=== PATIENT | male | born 1960 | race African-American/Black ===

== ENCOUNTER 2017-02-11 09:00 | Inpatient (IN) | payer OTHER ==
[2017-02-11 10:21] VITALS: BMI 35.9
--- NOTE | 2017-02-11 12:16 | HP ---
CIWA Score - CIWA Score Nausea/Vomitin-No Nausea/No Vomiting Muscle Tremors: 4-Moderate,w/Arms Extend Anxiety: 4-Mod. Anxious/Guarded Agitation: 4-Moderately Restless Paroxysmal Sweats: 3 Orientation: 0-Oriented Tacttile Disturbances: 0-None Auditory Disturbances: 0-None Visual Disturbances: 0-None Headache: 1-Very Mild CIWA-Ar Total Score: 16 Admission ROS S - HPI Chief Complaint: I am here to detox and try to stay sober. Allergies/Adverse Reactions: Allergies Allergy/AdvReac Type Severity Reaction Status Date / Time No Known Allergies Allergy Verified 02/11/17 11:01 History of Present Illness: pt is a 56yr old male with a history of alcohol dependence seeking detox for treatment. pt is also on a mmtp program last dose received today with a 110mg, pending verification. pt also has a left foot chronic diabetic ulcer denuted around the edges and inner area is beefy red minimal drainage noted on gauze. pt states he has been receiving wound care weekly and last time he went was two weeks ago. He has been dressing it himself as home. Exam Limitations: Physical Impairment (diabetes ulcer bottom of left foot. walks with a cane) - Ebola screening Have you traveled outside of the country in the last 21 days: No Have you had contact with anyone from an Ebola affected area: No Have you been sick,other than usual withdrawal symptoms: No Do you have a fever: No - Review of Systems Constitutional: Chills, Diaphoresis, Changes in sleep EENT: reports: No Symptoms Reported, Dental Problems (missing teeth) Respiratory: reports: No Symptoms reported Cardiac: reports: No Symptoms Reported GI: reports: Constipated, Poor Fluid Intake : reports: No Symptoms Reported Musculoskeletal: reports: Back Pain, Muscle Pain Integumentary: reports: Flushing, Sweating, Other (ulcer to bottom of left foot) Endocrine: reports: Excessive Sweating, Flushing, Intolerance to Cold, Intolerance to Heat Hematology: reports: No Symptoms Reported Psychiatric: reports: Judgement Intact, Mood/Affect Appropiate, Orientated x3, Agitated, Anxious Other Systems: Reviewed and Negative Patient History - Patient Medical History Hx Anemia: No Hx Asthma: No Hx Chronic Obstructive Pulmonary Disease (COPD): No Hx Cancer: No Hx Cardiac Disorders: No Hx Congestive Heart Failure: No Hx Hypertension: Yes Hx Hypercholesterolemia: No Hx Pacemaker: No HX Cerebrovascular Accident: No Hx Seizures: No Hx Dementia: No Hx Diabetes: Yes Hx Gastrointestinal Disorders: No Hx Liver Disease: No Hx Genitourinary Disorders: No Hx Sexually Transmitted Disorders: No Hx Renal Disease (ESRD): No Hx Thyroid Disease: No Hx Human Immunodeficiency Virus (HIV): No (negative) Hx Hepatitis C: Yes (diagnosed >10yrs) Hx Depression: No Hx Suicide Attempt: No (denies) Hx Bipolar Disorder: No Hx Schizophrenia: No Other Medical History: chronic diabetic ulcer left foot - Patient Surgical History Past Surgical History: No - PPD History Previous Implant?: Yes Documented Results: Negative w/o proof Implanted On Prior [facility] Admission?: No PPD to be Administered?: Yes - Reproductive History Patient is a Female of Child Bearing Age (11 -55 yrs old): No - Smoking Cessation Smoking history: Former smoker Have you smoked in the past 12 months: No If you are a former smoker, when did you quit?: 20 years ago Hx Chewing Tobacco Use: No Initiated information on smoking cessation: No - Substance & Tx. History Hx Alcohol Use: Yes Hx Substance Use: Yes Substance Use Type: Alcohol, Heroin, Opiates Hx Substance Use Treatment: Yes ([facility] last detox a year ago. first time with R) - Substances Abused Alcohol Route: Oral Frequency: Daily Amount used: 1 pint vodka and up Age of first use: 15 Date of Last Use: 02/10/17 Heroin Route: Inhalation Frequency: Daily Amount used: 5-10 bags Age of first use: 35 Date of Last Use: 02/10/17 Family Disease History - Family Disease History Family Disease History: Diabetes: Mother, Brother Admission Physical Exam S - Vital Signs Vital Signs: Vital Signs - 24 hr 02/11/17 10:18 Temperature 98.4 F Pulse Rate 69 Respiratory 20 Rate Blood Pressure 115/74 - Physical General Appearance: Yes: Moderate Distress, Obese, Irritable, Sweating, Anxious HEENTM: Yes: Normal Voice Respiratory: Yes: Lungs Clear, Normal Breath Sounds, No Respiratory Distress Neck: Yes: No masses,lesions,Nodules Breast: Yes: Within Normal Limits Cardiology: Yes: Regular Rhythm, Regular Rate, S1, S2 Abdominal: Yes: Normal Bowel Sounds, Non Tender, Soft Genitourinary: Yes: Within Normal Limits Back: Yes: Normal Inspection Musculoskeletal: Yes: Back pain Extremities: Yes: Normal Inspection, Non-Tender, Tremors Neurological: Yes: Fully Oriented, Alert, Normal Response Integumentary: Yes: Diaphoresis Lymphatic: Yes: Within Normal Limits - Diagnostic (1) Alcohol dependence with uncomplicated withdrawal Current Visit: Yes Status: Chronic (2) Methadone maintenance therapy patient Current Visit: Yes Status: Chronic Comment: last dose with 110mg today; pending verification (3) Ulcer of foot, chronic Current Visit: Yes Status: Chronic Qualifiers: Laterality: left Non-pressure ulcer stage: unspecified non-pressure ulcer stage Qualified Code(s): L97.529 - Non-pressure chronic ulcer of other part of left foot with unspecified severity Cleared for Admission [facility] - Detox or Rehab [facility] Level of Care: Medically Managed Detox Regimen/Protocol: Librium [facility] Breath Alcohol Content Breath Alcohol Content: 0 Urine Drug Screen - Results Drug Screen Negative: No Urine Drug Screen Results: OPI-Opiates, MTD-Methadone
[2017-02-11] MEDS ORDERED: MAGNESIUM HYDROX 2400MG/30ML ORAL SUSPENSION 30 ML CUP PO PRN (12:45)
[2017-02-11] MEDS ORDERED: P-EPHED 60MG/TRIPROLIDI 2.5MG TABLET PO PRN (12:45)
[2017-02-11] MEDS ORDERED: guaiFENesin/D-METHORPHAN HB 10 ML UNIT-DOSE CUPS PO PRN (12:45)
[2017-02-11] MEDS ORDERED: MAG HYDROX/AL HYDROX/SIMETH 30 ML UNIT-DOSE CUP PO PRN (12:45)
[2017-02-11] MEDS ORDERED: MENTHOL/PHENOL 1 EACH UD MM PRN (12:45)
[2017-02-11] MEDS ORDERED: chlordiazePOXIDE HCL 25 MG CAPSULE PO PRN (12:45)
[2017-02-11] MEDS ORDERED: hydrOXYzine PAMOATE 50 MG CAPSULE (FP) PO PRN (12:45)
[2017-02-11] MEDS ORDERED: MAGNESIUM CITRATE 300 ML BOTTLE PO PRN (12:45)
[2017-02-11] MEDS ORDERED: chlordiazePOXIDE HCL 25 MG CAPSULE PO ONE (13:15)
[2017-02-11] MEDS ORDERED: FUROSEMIDE 20 MG TABLET (FP) PO ONE (14:00)
[2017-02-11 14:46] LABS: HIV 1 & 2 AB NEGATIVE; HIV 1 AGp24 NEGATIVE
--- NOTE | 2017-02-11 15:51 | PN ---
[facility] Progress Note Note: Pt. has occasional uniform PVCs, he denies chest pain & says that his doctor told him about it, nothing to worry. PVCs may also be related to alcohol consumption. Vital Signs - 8 hr 02/11/17 02/11/17 10:18 14:28 Temperature 98.4 F 97.3 F L Pulse Rate 69 55 L Respiratory 20 18 Rate Blood Pressure 115/74 155/71 Repeat EKG at 8 PM
[2017-02-11] MEDS ORDERED: INSULIN (NOVOLOG) ASPART 100 UNITS/ML 10ML VIAL ONE (16:54)
[2017-02-11] MEDS: sitaGLIPtin PHOSPHATE 50 MG TABLET PO SCH (17:08)
[2017-02-11] MEDS: metFORMIN HCL 500 MG TABLET (FP) PO SCH (17:08)
[2017-02-11] MEDS: chlordiazePOXIDE HCL 25 MG CAPSULE PO SCH ×2 (17:08→22:29)
[2017-02-11] MEDS: INSULIN (NOVOLOG) ASPART 100 UNITS/ML 10ML VIAL SQ SCH (17:09)
[2017-02-11 17:31] LABS: URINE APPEARANCE CLEAR; URINE BILIRUBIN NEGATIVE (NEGATIVE); URINE COLOR YELLOW; URINE GLUCOSE (UA) NEGATIVE (NEGATIVE); URINE KETONE NEGATIVE (NEGATIVE); URINE LEUK ESTERASE NEGATIVE (NEGATIVE); URINE NITRITE NEGATIVE (NEGATIVE); URINE PROTEIN NEGATIVE (NEGATIVE); URINE UROBILINOGEN 4.0 E.U/dl E.U./dl (0.2-1.0)
[2017-02-11 17:32] LABS: URINE BLOOD 2+ (NEGATIVE)
[2017-02-11 17:36] LABS: URINE HYALINE CAST 1 /lpf; URINE MUCUS RARE; URINE RBC 101 /hpf (0-3); URINE WBC 5 /hpf (3-5)
[2017-02-11] MEDS ORDERED: CYCLOBENZAPRINE HCL 10 MG TABLET (FP) PO ONE (19:43)
[2017-02-11] MEDS ORDERED: PATIENT'S OWN MEDICATION (NON-FORMULARY) (Sitagliptin Phos/Metformin Hcl [Janumet 50-1,000 PO SCH (22:00)
[2017-02-11] MEDS: THIAMINE HCL 100 MG TABLET (FP) PO SCH (22:29)
[2017-02-11] MEDS: IBUPROFEN 400 MG TABLET (FP) PO PRN (22:29)
[2017-02-11] MEDS: INSULIN DETEMIR 100 UNITS/ML MDV SQ SCH (22:29)
[2017-02-12] MEDS: diphenhydrAMINE HCL 50 MG CAPSULE PO PRN (01:49)
[2017-02-12] MEDS: ACETAMINOPHEN 325 MG TABLET (FP) PO PRN (01:49)
[2017-02-12] MEDS: chlordiazePOXIDE HCL 25 MG CAPSULE PO SCH ×4 (05:42→23:09)
[2017-02-12] MEDS ORDERED: glyBURIDE 5 MG TABLET (UD) PO SCH (07:00)
[2017-02-12] MEDS: metFORMIN HCL 500 MG TABLET (FP) PO SCH ×2 (07:41→17:41)
[2017-02-12] MEDS: GLIMEPIRIDE 4 MG TABLET (FP) PO SCH (07:41)
[2017-02-12] MEDS: sitaGLIPtin PHOSPHATE 50 MG TABLET PO SCH ×2 (07:41→17:41)
[2017-02-12] MEDS: INSULIN (NOVOLOG) ASPART 100 UNITS/ML 10ML VIAL SQ SCH ×3 (08:30→16:37)
[2017-02-12] MEDS ORDERED: METHADONE HCL 10 MG TABLET PO SCH (10:00)
[2017-02-12 10:06] LABS: MCH 30.1 pg (25.7-33.7); MCHC 32.7 g/dl (32.0-35.9); MEAN CELL VOLUME 92.1 fl (80-96); PLATELET COUNT 65 K/MM3 (134-434); RDW 15.4 % (11.9-15.9); WHITE BLOOD COUNT 4.6 K/mm3 (4.0-10.0)
--- NOTE | 2017-02-12 10:06 | PN ---
[facility] CIWA - CIWA Score Nausea/Vomitin Muscle Tremors: 3 Anxiety: 0-No Anxiety, at Ease Agitation: 0-Normal Activity Paroxysmal Sweats: 3 Orientation: 0-Oriented Tacttile Disturbances: 3-Moderate Itch/Numb/Burn Auditory Disturbances: 2-Mild Harshness/Frighten Visual Disturbances: 2-Mild Sensitivity Headache: 0-None Present CIWA-Ar Total Score: 15 S Progress Note (SOAP) Subjective: Interrupted Sleep, Body Aches, Sweating, Constipation. Objective: PT. A & O X 3, OBSERVED AMBULATING ON UNIT WITH ASSISTANCE OF A CANE. NO ACUTE DISTRESS. PT. DENIES CHEST PAIN. 02/12/17 10:03 Vital Signs Temperature 97.4 F L 02/12/17 06:36 Pulse Rate 63 02/12/17 06:36 Respiratory Rate 18 02/12/17 06:36 Blood Pressure 138/80 02/12/17 06:36 O2 Sat by Pulse Oximetry (%) Laboratory Tests 02/11/17 02/11/17 02/11/17 11:15 11:30 15:00 POC Glucometer 182 Urine Color Yellow Urine Appearance Clear Urine pH 7.0 Ur Specific [place] 1.015 Urine Protein Negative Urine Glucose (UA) Negative Urine Ketones Negative Urine Blood 2+ H Urine Nitrite Negative Urine Bilirubin Negative Urine Urobilinogen 4.0 e.u/dl Ur Leukocyte Esterase Negative Urine RBC 101 Urine WBC 5 Ur Epithelial Cells Rare Hyaline Casts 1 Urine Mucus Rare HIV 1&2 Antibody Screen Negative HIV P24 Antigen Negative 02/11/17 02/11/17 02/12/17 15:58 22:27 05:41 POC Glucometer 223 119 109 Urine Color Urine Appearance Urine pH Ur Specific [place] Urine Protein Urine Glucose (UA) Urine Ketones Urine Blood Urine Nitrite Urine Bilirubin Urine Urobilinogen Ur Leukocyte Esterase Urine RBC Urine WBC Ur Epithelial Cells Hyaline Casts Urine Mucus HIV 1&2 Antibody Screen HIV P24 Antigen UA RESULTS NOTED. CBC, COMP. META., RPR PENDING. 02/12/17 10:05 Assessment: 02/12/17 10:06 WITHDRAWAL SYMPTOMS. Plan: CONTINUE DETOX. REPEAT UA 02/13/2017 FOR ADMISSION UA ABNORMALITIES.
[2017-02-12] MEDS: PRENATAL VITAMINS W/ FOLIC ACID TABLET (FP) PO SCH (10:11)
[2017-02-12] MEDS: FUROSEMIDE 20 MG TABLET (FP) PO SCH (10:11)
[2017-02-12] MEDS: BACITRACIN 0.9 GM PACKET TP SCH (10:11)
[2017-02-12] MEDS: ENALAPRIL MALEATE 10 MG TABLET (FP) PO SCH (10:11)
[2017-02-12] MEDS: TAMSULOSIN HCL 0.4 MG CAP.ER.24H (FP) PO SCH (10:12)
[2017-02-12] MEDS: COLLAGENASE CLOSTRIDIUM HIST. 30 GRAMS TUBE TP SCH (10:14)
--- NOTE | 2017-02-12 10:15 | PN ---
[facility] Progress Note Note: Received report that while patient was leaning against counter at [facility], he slipped and fell against counter and on to floor. Patient landed on buttocks on floor. Patient denies any injury or wound after fall. Patient denies LOC after fall. Pt. also denies injury to head. VS Stable. O2: 97% on Room Air. No signs of acute injury or wounds noted on patients body. Patient A & O X 3. [facility]RL. [facility] FALL PROTOCOL # 2 INITIATED. Will continue to monitor. Josie Ryan NP
[2017-02-12 10:36] LABS: ALBUMIN 2.9 g/dl (3.4-5.0); ALK PHOS 142 U/L (45-117); ANION GAP 9 (8-16); BILIRUBIN,TOTAL 0.9 mg/dL (0.2-1.0); CALCIUM 8.6 mg/dL (8.5-10.1); CO2 30 mmol/L (21-32); COCKROFT - GAULT 175.29; CREATININE 0.8 mg/dL (0.7-1.3); GLUCOSE,RANDOM 165 mg/dL (74-106); SGOT/AST 76 U/L (15-37); SGPT/ALT 57 U/L (12-78); TOT PROT 7.3 g/dl (6.4-8.2)
--- NOTE | 2017-02-12 15:47 | EKG ---
Test Reason : Blood Pressure : / mmHG Vent. Rate : 064 BPM Atrial Rate : 064 BPM P-R Int : 190 ms QRS Dur : 086 ms QT Int : 474 ms P-R-T Axes : 064 -04 045 degrees QTc Int : 489 ms NORMAL SINUS RHYTHM POSSIBLE LEFT ATRIAL ENLARGEMENT PROLONGED QT ABNORMAL ECG WHEN COMPARED WITH ECG OF 11-FEB-2017 13:14, PREMATURE VENTRICULAR COMPLEXES ARE NO LONGER PRESENT QT HAS LENGTHENED CLINICAL CORRELATION IS RECOMMENDED Confirmed by JAZMINE PATEL, EAN ([id number]) on 02/12/2017 3:46:54 PM Referred By: Tucker Sun Confirmed By:EAN LUCERO MD
--- NOTE | 2017-02-12 15:48 | EKG ---
Test Reason : Blood Pressure : / mmHG Vent. Rate : 070 BPM Atrial Rate : 070 BPM P-R Int : 188 ms QRS Dur : 088 ms QT Int : 384 ms P-R-T Axes : 061 -02 040 degrees QTc Int : 414 ms SINUS RHYTHM WITH FREQUENT PREMATURE VENTRICULAR COMPLEXES POSSIBLE LEFT ATRIAL ENLARGEMENT NONSPECIFIC ST AND T WAVE ABNORMALITY ABNORMAL ECG NO PREVIOUS ECGS AVAILABLE BASELINE ARTIFACT Confirmed by JAZMINE PATEL, EAN ([id number]) on 02/12/2017 3:47:53 PM Referred By: Tucker Sun Confirmed By:EAN LUCERO MD
[2017-02-12] MEDS: INSULIN DETEMIR 100 UNITS/ML MDV SQ SCH (23:09)
[2017-02-12] MEDS: THIAMINE HCL 100 MG TABLET (FP) PO SCH (23:09)
[2017-02-13] MEDS ORDERED: METHADONE HCL 10 MG TABLET ONE (04:21)
[2017-02-13] MEDS ORDERED: METHADONE HCL 40 MG DISPERSABLE TABLET ONE (04:22)
[2017-02-13] MEDS: METHADONE 80 MG, METHADONE 30 MG PO SCH (05:51)
[2017-02-13] MEDS: chlordiazePOXIDE HCL 25 MG CAPSULE PO SCH ×2 (05:52→10:52)
[2017-02-13] MEDS: metFORMIN HCL 500 MG TABLET (FP) PO SCH ×2 (06:48→16:45)
[2017-02-13] MEDS: sitaGLIPtin PHOSPHATE 50 MG TABLET PO SCH ×2 (06:48→17:26)
[2017-02-13] MEDS: INSULIN (NOVOLOG) ASPART 100 UNITS/ML 10ML VIAL SQ SCH ×3 (06:48→17:24)
[2017-02-13] MEDS: GLIMEPIRIDE 4 MG TABLET (FP) PO SCH (06:49)
[2017-02-13] MEDS: TAMSULOSIN HCL 0.4 MG CAP.ER.24H (FP) PO SCH (10:52)
[2017-02-13] MEDS: FUROSEMIDE 20 MG TABLET (FP) PO SCH (10:52)
[2017-02-13] MEDS: BACITRACIN 0.9 GM PACKET TP SCH (10:52)
[2017-02-13] MEDS: ENALAPRIL MALEATE 10 MG TABLET (FP) PO SCH (10:53)
[2017-02-13] MEDS: PRENATAL VITAMINS W/ FOLIC ACID TABLET (FP) PO SCH (10:53)
[2017-02-13] MEDS: COLLAGENASE CLOSTRIDIUM HIST. 30 GRAMS TUBE TP SCH (10:53)
[2017-02-13] MEDS: ACETAMINOPHEN 325 MG TABLET (FP) PO PRN (11:30)
--- NOTE | 2017-02-13 15:09 | PN ---
S CIWA - CIWA Score Nausea/Vomitin-No Nausea/No Vomiting Muscle Tremors: 4-Moderate,w/Arms Extend Anxiety: 4-Mod. Anxious/Guarded Agitation: 4-Moderately Restless Paroxysmal Sweats: 3 Orientation: 0-Oriented Tacttile Disturbances: 1-Very Mild Itch/Numbness Auditory Disturbances: 0-None Visual Disturbances: 0-None Headache: 2-Mild CIWA-Ar Total Score: 18 [facility] Progress Note (SOAP) Subjective: Sweating, back and stomach ache, interrupted sleep Objective: 02/13/17 15:07 Last Vital Signs Temp Pulse Resp BP Pulse Ox 98.3 F 75 18 136/81 02/13/17 09:30 02/13/17 09:30 02/13/17 09:30 02/13/17 09:30 Laboratory Tests 02/11/17 02/11/17 02/11/17 11:15 11:30 15:00 WBC RBC Hgb Hct MCV MCHC RDW Plt Count MPV Sodium Potassium Chloride Carbon Dioxide Anion Gap BUN Creatinine Creat Clearance w eGFR POC Glucometer 182 Random Glucose Calcium Total Bilirubin AST ALT Alkaline Phosphatase Total Protein Albumin Urine Color Yellow Urine Appearance Clear Urine pH 7.0 Ur Specific [place] 1.015 Urine Protein Negative Urine Glucose (UA) Negative Urine Ketones Negative Urine Blood 2+ H Urine Nitrite Negative Urine Bilirubin Negative Urine Urobilinogen 4.0 e.u/dl Ur Leukocyte Esterase Negative Urine RBC 101 Urine WBC 5 Ur Epithelial Cells Rare Hyaline Casts 1 Urine Mucus Rare RPR Titer HIV 1&2 Antibody Screen Negative HIV P24 Antigen Negative 02/11/17 02/11/17 02/12/17 15:58 22:27 05:41 WBC RBC Hgb Hct MCV MCHC RDW Plt Count MPV Sodium Potassium Chloride Carbon Dioxide Anion Gap BUN Creatinine Creat Clearance w eGFR POC Glucometer 223 119 109 Random Glucose Calcium Total Bilirubin AST ALT Alkaline Phosphatase Total Protein Albumin Urine Color Urine Appearance Urine pH Ur Specific [place] Urine Protein Urine Glucose (UA) Urine Ketones Urine Blood Urine Nitrite Urine Bilirubin Urine Urobilinogen Ur Leukocyte Esterase Urine RBC Urine WBC Ur Epithelial Cells Hyaline Casts Urine Mucus RPR Titer HIV 1&2 Antibody Screen HIV P24 Antigen 02/12/17 02/12/17 02/12/17 06:00 06:00 06:00 WBC 4.6 RBC 4.16 Hgb 12.5 Hct 38.3 MCV 92.1 MCHC 32.7 RDW 15.4 Plt Count 65 L MPV 11.0 Sodium 142 Potassium 3.7 Chloride 103 Carbon Dioxide 30 Anion Gap 9 BUN 13 Creatinine 0.8 Creat Clearance w eGFR > 60 POC Glucometer Random Glucose 165 H Calcium 8.6 Total Bilirubin 0.9 AST 76 H ALT 57 Alkaline Phosphatase 142 H Total Protein 7.3 Albumin 2.9 L Urine Color Urine Appearance Urine pH Ur Specific [place] Urine Protein Urine Glucose (UA) Urine Ketones Urine Blood Urine Nitrite Urine Bilirubin Urine Urobilinogen Ur Leukocyte Esterase Urine RBC Urine WBC Ur Epithelial Cells Hyaline Casts Urine Mucus RPR Titer Nonreactive HIV 1&2 Antibody Screen HIV P24 Antigen 02/12/17 02/12/17 02/13/17 16:16 21:39 05:51 WBC RBC Hgb Hct MCV MCHC RDW Plt Count MPV Sodium Potassium Chloride Carbon Dioxide Anion Gap BUN Creatinine Creat Clearance w eGFR POC Glucometer 118 123 78 Random Glucose Calcium Total Bilirubin AST ALT Alkaline Phosphatase Total Protein Albumin Urine Color Urine Appearance Urine pH Ur Specific [place] Urine Protein Urine Glucose (UA) Urine Ketones Urine Blood Urine Nitrite Urine Bilirubin Urine Urobilinogen Ur Leukocyte Esterase Urine RBC Urine WBC Ur Epithelial Cells Hyaline Casts Urine Mucus RPR Titer HIV 1&2 Antibody Screen HIV P24 Antigen Labs noted: UA 2+ blood Assessment: 02/13/17 15:08 Withdrawal symptoms Noted with gross microscopic hematuria Plan: Continue detox Microscopic hematuria, gross: encouraged to drink lots of water, repeat UA
[2017-02-13] MEDS: chlordiazePOXIDE 5 MG CAPSULE PO SCH ×2 (17:25→22:01)
[2017-02-13] MEDS: IBUPROFEN 400 MG TABLET (FP) PO PRN (21:52)
[2017-02-13] MEDS: diphenhydrAMINE HCL 50 MG CAPSULE PO PRN (21:52)
[2017-02-13] MEDS: THIAMINE HCL 100 MG TABLET (FP) PO SCH (21:53)
[2017-02-13] MEDS: INSULIN DETEMIR 100 UNITS/ML MDV SQ SCH (22:01)
[2017-02-13] MEDS: LOPERAMIDE HCL 2 MG CAPSULE PO PRN (23:52)
[2017-02-14] MEDS ORDERED: METHADONE HCL 40 MG DISPERSABLE TABLET ONE (02:34)
[2017-02-14] MEDS ORDERED: METHADONE HCL 10 MG TABLET ONE (02:34)
[2017-02-14] MEDS: metFORMIN HCL 500 MG TABLET (FP) PO SCH ×2 (06:13→17:16)
[2017-02-14] MEDS: chlordiazePOXIDE 5 MG CAPSULE PO SCH (06:13)
[2017-02-14] MEDS: METHADONE 80 MG, METHADONE 30 MG PO SCH (06:13)
[2017-02-14] MEDS: GLIMEPIRIDE 4 MG TABLET (FP) PO SCH (06:13)
[2017-02-14] MEDS: sitaGLIPtin PHOSPHATE 50 MG TABLET PO SCH ×2 (06:13→17:18)
[2017-02-14] MEDS: INSULIN (NOVOLOG) ASPART 100 UNITS/ML 10ML VIAL SQ SCH ×3 (06:36→17:18)
[2017-02-14] MEDS: LOPERAMIDE HCL 2 MG CAPSULE PO PRN ×2 (07:00→14:23)
--- NOTE | 2017-02-14 10:17 | PN ---
[facility] Progress Note (SOAP) Subjective: Sweating,somewhat drowsy. We'll hold this morning librium. Objective: 02/14/17 10:16 Vital Signs - 8 hr 02/14/17 02/14/17 02/14/17 03:30 06:21 09:37 Temperature 97.5 F L 96.2 F L Pulse Rate 79 77 Respiratory 18 18 18 Rate Blood Pressure 151/92 135/87 Laboratory Tests 02/11/17 02/11/17 02/11/17 11:15 11:30 15:00 WBC RBC Hgb Hct MCV MCHC RDW Plt Count MPV Sodium Potassium Chloride Carbon Dioxide Anion Gap BUN Creatinine Creat Clearance w eGFR POC Glucometer 182 Random Glucose Calcium Total Bilirubin AST ALT Alkaline Phosphatase Total Protein Albumin Urine Color Yellow Urine Appearance Clear Urine pH 7.0 Ur Specific [place] 1.015 Urine Protein Negative Urine Glucose (UA) Negative Urine Ketones Negative Urine Blood 2+ H Urine Nitrite Negative Urine Bilirubin Negative Urine Urobilinogen 4.0 e.u/dl Ur Leukocyte Esterase Negative Urine RBC 101 Urine WBC 5 Ur Epithelial Cells Rare Hyaline Casts 1 Urine Mucus Rare RPR Titer HIV 1&2 Antibody Screen Negative HIV P24 Antigen Negative 02/11/17 02/11/17 02/12/17 15:58 22:27 05:41 WBC RBC Hgb Hct MCV MCHC RDW Plt Count MPV Sodium Potassium Chloride Carbon Dioxide Anion Gap BUN Creatinine Creat Clearance w eGFR POC Glucometer 223 119 109 Random Glucose Calcium Total Bilirubin AST ALT Alkaline Phosphatase Total Protein Albumin Urine Color Urine Appearance Urine pH Ur Specific [place] Urine Protein Urine Glucose (UA) Urine Ketones Urine Blood Urine Nitrite Urine Bilirubin Urine Urobilinogen Ur Leukocyte Esterase Urine RBC Urine WBC Ur Epithelial Cells Hyaline Casts Urine Mucus RPR Titer HIV 1&2 Antibody Screen HIV P24 Antigen 02/12/17 02/12/17 02/12/17 06:00 06:00 06:00 WBC 4.6 RBC 4.16 Hgb 12.5 Hct 38.3 MCV 92.1 MCHC 32.7 RDW 15.4 Plt Count 65 L MPV 11.0 Sodium 142 Potassium 3.7 Chloride 103 Carbon Dioxide 30 Anion Gap 9 BUN 13 Creatinine 0.8 Creat Clearance w eGFR > 60 POC Glucometer Random Glucose 165 H Calcium 8.6 Total Bilirubin 0.9 AST 76 H ALT 57 Alkaline Phosphatase 142 H Total Protein 7.3 Albumin 2.9 L Urine Color Urine Appearance Urine pH Ur Specific [place] Urine Protein Urine Glucose (UA) Urine Ketones Urine Blood Urine Nitrite Urine Bilirubin Urine Urobilinogen Ur Leukocyte Esterase Urine RBC Urine WBC Ur Epithelial Cells Hyaline Casts Urine Mucus RPR Titer Nonreactive HIV 1&2 Antibody Screen HIV P24 Antigen 02/12/17 02/12/17 02/13/17 16:16 21:39 05:51 WBC RBC Hgb Hct MCV MCHC RDW Plt Count MPV Sodium Potassium Chloride Carbon Dioxide Anion Gap BUN Creatinine Creat Clearance w eGFR POC Glucometer 118 123 78 Random Glucose Calcium Total Bilirubin AST ALT Alkaline Phosphatase Total Protein Albumin Urine Color Urine Appearance Urine pH Ur Specific [place] Urine Protein Urine Glucose (UA) Urine Ketones Urine Blood Urine Nitrite Urine Bilirubin Urine Urobilinogen Ur Leukocyte Esterase Urine RBC Urine WBC Ur Epithelial Cells Hyaline Casts Urine Mucus RPR Titer HIV 1&2 Antibody Screen HIV P24 Antigen 02/13/17 02/13/17 02/14/17 16:24 21:16 06:11 WBC RBC Hgb Hct MCV MCHC RDW Plt Count MPV Sodium Potassium Chloride Carbon Dioxide Anion Gap BUN Creatinine Creat Clearance w eGFR POC Glucometer 129 114 126 Random Glucose Calcium Total Bilirubin AST ALT Alkaline Phosphatase Total Protein Albumin Urine Color Urine Appearance Urine pH Ur Specific [place] Urine Protein Urine Glucose (UA) Urine Ketones Urine Blood Urine Nitrite Urine Bilirubin Urine Urobilinogen Ur Leukocyte Esterase Urine RBC Urine WBC Ur Epithelial Cells Hyaline Casts Urine Mucus RPR Titer HIV 1&2 Antibody Screen HIV P24 Antigen labs noted Assessment: 02/14/17 10:16 Withdrawal sx. Plan: Continue detox
[2017-02-14] MEDS: PRENATAL VITAMINS W/ FOLIC ACID TABLET (FP) PO SCH (10:30)
[2017-02-14] MEDS: TAMSULOSIN HCL 0.4 MG CAP.ER.24H (FP) PO SCH (10:30)
[2017-02-14] MEDS: COLLAGENASE CLOSTRIDIUM HIST. 30 GRAMS TUBE TP SCH (10:30)
[2017-02-14] MEDS: BACITRACIN 0.9 GM PACKET TP SCH (10:30)
[2017-02-14] MEDS: ENALAPRIL MALEATE 10 MG TABLET (FP) PO SCH (10:30)
[2017-02-14] MEDS: FUROSEMIDE 20 MG TABLET (FP) PO SCH (10:30)
[2017-02-14] MEDS ORDERED: INSULIN (NOVOLOG) ASPART 100 UNITS/ML 10ML VIAL ONE (11:21)
[2017-02-14] MEDS ORDERED: chlordiazePOXIDE HCL 10 MG CAPSULE PO SCH (17:00)
[2017-02-14] MEDS: chlordiazePOXIDE HCL 10 MG CAPSULE PO SCH ×2 (17:19→22:43)
--- NOTE | 2017-02-14 18:33 | PN ---
[facility] Progress Note Note: NURSE REPORTS PT BS OF 72 MG/DL AND SOME DROWSINESS. PLAN:HOLD LIBRIUM 10 MG DIRECTED. ALSO METFORMIN 1000 MG AND JANUVIA 50 MG HELD THIS EVENING. DECREASE METFORMIN TO 500 MG PO BID FROM 02/15/17 MONITOR BS AND PT STATUS NEEDED
[2017-02-14] MEDS ORDERED: metFORMIN HCL 500 MG TABLET (FP) PO SCH (18:34)
[2017-02-14] MEDS: THIAMINE HCL 100 MG TABLET (FP) PO SCH (22:43)
[2017-02-14] MEDS: INSULIN DETEMIR 100 UNITS/ML MDV SQ SCH (22:49)
[2017-02-15] MEDS ORDERED: METHADONE HCL 10 MG TABLET ONE (03:44)
[2017-02-15] MEDS ORDERED: METHADONE HCL 40 MG DISPERSABLE TABLET ONE (03:45)
[2017-02-15] MEDS: METHADONE 80 MG, METHADONE 30 MG PO SCH (06:04)
[2017-02-15] MEDS ORDERED: metFORMIN HCL 500 MG TABLET (FP) PO SCH (07:00)
[2017-02-15] MEDS: GLIMEPIRIDE 4 MG TABLET (FP) PO SCH (08:07)
[2017-02-15] MEDS: sitaGLIPtin PHOSPHATE 50 MG TABLET PO SCH (08:07)
[2017-02-15] MEDS: INSULIN (NOVOLOG) ASPART 100 UNITS/ML 10ML VIAL SQ SCH ×2 (08:08→11:55)
[2017-02-15 09:57] LABS: URINE APPEARANCE CLOUDY; URINE BILIRUBIN NEGATIVE (NEGATIVE); URINE COLOR AMBER; URINE GLUCOSE (UA) NEGATIVE (NEGATIVE); URINE KETONE NEGATIVE (NEGATIVE); URINE LEUK ESTERASE NEGATIVE (NEGATIVE); URINE NITRITE NEGATIVE (NEGATIVE); URINE UROBILINOGEN 4.0 E.U/dl E.U./dl (0.2-1.0)
[2017-02-15 10:01] LABS: URINE BLOOD 3+ (NEGATIVE); URINE PROTEIN 2+ (NEGATIVE)
[2017-02-15 10:15] LABS: CALCIUM OXALATE CRYSTALS FEW /hpf (NONE SEEN); URINE BACTERIA RARE /hpf (NONE SEEN); URINE RBC 1231 /hpf (0-3); URINE WBC 3 /hpf (3-5)
--- NOTE | 2017-02-15 10:25 | DS ---
[facility] Detox Discharge Summary Admission Date: 02/11/17 Discharge Date: 02/15/17 - History Present History: Alcohol Dependence Additional Comments: DETOX COMPLETED.ALERT O X 3. NAD. PT INSTRUCTED TO FOLLOW UP WITH PMD, AT [facility] COMORBID CONDITIONS. Pertinent Past History: CHRONIC FOOT ULCER TYPE 2 DM BPH HTN HEP C OBESITY - Physical Exam Results Vital Signs: Vital Signs Temperature 97.3 F L 02/15/17 06:21 Pulse Rate 71 02/15/17 06:21 Respiratory Rate 18 02/15/17 06:21 Blood Pressure 140/82 02/15/17 06:21 O2 Sat by Pulse Oximetry (%) Pertinent Admission Physical Exam Findings: WITHDRAWAL SX LEFT FOOT ULCER FEET EDEMA - Treatment Hospital Course: Detox Protocol Followed, Detoxed Safely, Responded well, Discharged Condition Good, Rehab Referral Accepted Patient has Accepted a Rehab Referral to: [id number] - Medication Discharge Medications: Ambulatory Orders Enalapril Maleate [Vasotec -] 10 mg PO DAILY 02/11/17 Glyburide [Diabeta -] 5 mg PO DAILY 02/11/17 Insulin Glargine,Hum.rec.anlog [Lantus Solostar PEN (NF)] 35 units SQ HS Sitagliptin Phos/Metformin HCl [Janumet 50-1,000 mg Tablet] 1 each PO BID Tamsulosin HCl [Flomax] 0.4 mg PO DAILY 02/11/17 - Diagnosis (1) Alcohol dependence with uncomplicated withdrawal Current Visit: Yes Status: Acute (2) Methadone maintenance therapy patient Current Visit: Yes Status: Chronic (3) Ulcer of foot, chronic Current Visit: Yes Status: Chronic Qualifiers: Laterality: left Non-pressure ulcer stage: unspecified non-pressure ulcer stage Qualified Code(s): L97.529 - Non-pressure chronic ulcer of other part of left foot with unspecified severity (4) Type 2 diabetes mellitus Current Visit: Yes Status: Chronic Qualifiers: Diabetes mellitus complication status: with skin complications Diabetes mellitus complication detail: with foot ulcer (5) Obesity (BMI 30-39.9) Current Visit: Yes Status: Chronic (6) HTN (hypertension) Current Visit: Yes Status: Chronic Qualifiers: Hypertension type: essential hypertension Qualified Code(s): I10 - Essential (primary) hypertension (7) Hx of hepatitis C Current Visit: Yes Status: Chronic (8) BPH (benign prostatic hyperplasia) Current Visit: Yes Status: Chronic Qualifiers: Lower urinary tract symptom detail: unspecified - AMA Did Patient Leave Against Medical Advice: No
[2017-02-15 10:37] VITALS: BP 140/79; PULSE 74; TEMP 97.7
[2017-02-15] MEDS: FUROSEMIDE 20 MG TABLET (FP) PO SCH (10:39)
[2017-02-15] MEDS: PRENATAL VITAMINS W/ FOLIC ACID TABLET (FP) PO SCH (10:39)
[2017-02-15] MEDS: ENALAPRIL MALEATE 10 MG TABLET (FP) PO SCH (10:39)
[2017-02-15] MEDS: TAMSULOSIN HCL 0.4 MG CAP.ER.24H (FP) PO SCH (10:39)
[2017-02-15] MEDS: COLLAGENASE CLOSTRIDIUM HIST. 30 GRAMS TUBE TP SCH (10:40)
[2017-02-15] MEDS: BACITRACIN 0.9 GM PACKET TP SCH (10:40)
--- NOTE | 2017-02-15 12:55 | PN ---
[facility] Progress Note Note: PT CONTINUES TO EXHIBIT LOW BLOOD SUGAR SINCE YESTERDAY WITH SOMNOLENCE/ DECREASED SELF CARE ACTIVITIES WELL DECREASED FOOD/FLUID INTAKE. PT COMPLETED DETOX TODAY AND REFERRED TO REHAB BUT ASSESSED NOT STABLE FOR REHAB AT THIS TIME. PT WILL BENEFIT FROM FURTHER MEDICAL EVALUATION AND STABILIZATION BEFORE DRUG TX AFTERCARE. SPOKE WITH DR TSE AT [facility] WHO WILL ACCEPT THE PATIENT. Vital Signs Temperature 97.7 F 02/15/17 10:06 Pulse Rate 74 02/15/17 10:06 Respiratory Rate 18 02/15/17 10:06 Blood Pressure 140/79 02/15/17 10:06 O2 Sat by Pulse Oximetry (%) Laboratory Tests 02/11/17 02/11/17 02/11/17 11:15 11:30 15:00 WBC RBC Hgb Hct MCV MCHC RDW Plt Count MPV Sodium Potassium Chloride Carbon Dioxide Anion Gap BUN Creatinine Creat Clearance w eGFR POC Glucometer 182 Random Glucose Calcium Total Bilirubin AST ALT Alkaline Phosphatase Total Protein Albumin Urine Color Yellow Urine Appearance Clear Urine pH 7.0 Ur Specific [place] 1.015 Urine Protein Negative Urine Glucose (UA) Negative Urine Ketones Negative Urine Blood 2+ H Urine Nitrite Negative Urine Bilirubin Negative Urine Urobilinogen 4.0 e.u/dl Ur Leukocyte Esterase Negative Urine RBC 101 Urine WBC 5 Ur Epithelial Cells Rare Calcium Oxalate Crystal Urine Bacteria Hyaline Casts 1 Urine Mucus Rare RPR Titer HIV 1&2 Antibody Screen Negative HIV P24 Antigen Negative 02/11/17 02/11/17 02/12/17 15:58 22:27 05:41 WBC RBC Hgb Hct MCV MCHC RDW Plt Count MPV Sodium Potassium Chloride Carbon Dioxide Anion Gap BUN Creatinine Creat Clearance w eGFR POC Glucometer 223 119 109 Random Glucose Calcium Total Bilirubin AST ALT Alkaline Phosphatase Total Protein Albumin Urine Color Urine Appearance Urine pH Ur Specific [place] Urine Protein Urine Glucose (UA) Urine Ketones Urine Blood Urine Nitrite Urine Bilirubin Urine Urobilinogen Ur Leukocyte Esterase Urine RBC Urine WBC Ur Epithelial Cells Calcium Oxalate Crystal Urine Bacteria Hyaline Casts Urine Mucus RPR Titer HIV 1&2 Antibody Screen HIV P24 Antigen 02/12/17 02/12/17 02/12/17 06:00 06:00 06:00 WBC 4.6 RBC 4.16 Hgb 12.5 Hct 38.3 MCV 92.1 MCHC 32.7 RDW 15.4 Plt Count 65 L MPV 11.0 Sodium 142 Potassium 3.7 Chloride 103 Carbon Dioxide 30 Anion Gap 9 BUN 13 Creatinine 0.8 Creat Clearance w eGFR > 60 POC Glucometer Random Glucose 165 H Calcium 8.6 Total Bilirubin 0.9 AST 76 H ALT 57 Alkaline Phosphatase 142 H Total Protein 7.3 Albumin 2.9 L Urine Color Urine Appearance Urine pH Ur Specific [place] Urine Protein Urine Glucose (UA) Urine Ketones Urine Blood Urine Nitrite Urine Bilirubin Urine Urobilinogen Ur Leukocyte Esterase Urine RBC Urine WBC Ur Epithelial Cells Calcium Oxalate Crystal Urine Bacteria Hyaline Casts Urine Mucus RPR Titer Nonreactive HIV 1&2 Antibody Screen HIV P24 Antigen 02/12/17 02/12/17 02/13/17 16:16 21:39 05:51 WBC RBC Hgb Hct MCV MCHC RDW Plt Count MPV Sodium Potassium Chloride Carbon Dioxide Anion Gap BUN Creatinine Creat Clearance w eGFR POC Glucometer 118 123 78 Random Glucose Calcium Total Bilirubin AST ALT Alkaline Phosphatase Total Protein Albumin Urine Color Urine Appearance Urine pH Ur Specific [place] Urine Protein Urine Glucose (UA) Urine Ketones Urine Blood Urine Nitrite Urine Bilirubin Urine Urobilinogen Ur Leukocyte Esterase Urine RBC Urine WBC Ur Epithelial Cells Calcium Oxalate Crystal Urine Bacteria Hyaline Casts Urine Mucus RPR Titer HIV 1&2 Antibody Screen HIV P24 Antigen 02/13/17 02/13/17 02/14/17 16:24 21:16 06:11 WBC RBC Hgb Hct MCV MCHC RDW Plt Count MPV Sodium Potassium Chloride Carbon Dioxide Anion Gap BUN Creatinine Creat Clearance w eGFR POC Glucometer 129 114 126 Random Glucose Calcium Total Bilirubin AST ALT Alkaline Phosphatase Total Protein Albumin Urine Color Urine Appearance Urine pH Ur Specific [place] Urine Protein Urine Glucose (UA) Urine Ketones Urine Blood Urine Nitrite Urine Bilirubin Urine Urobilinogen Ur Leukocyte Esterase Urine RBC Urine WBC Ur Epithelial Cells Calcium Oxalate Crystal Urine Bacteria Hyaline Casts Urine Mucus RPR Titer HIV 1&2 Antibody Screen HIV P24 Antigen 02/14/17 02/14/17 02/14/17 11:17 16:16 20:27 WBC RBC Hgb Hct MCV MCHC RDW Plt Count MPV Sodium Potassium Chloride Carbon Dioxide Anion Gap BUN Creatinine Creat Clearance w eGFR POC Glucometer 275 72 66 Random Glucose Calcium Total Bilirubin AST ALT Alkaline Phosphatase Total Protein Albumin Urine Color Urine Appearance Urine pH Ur Specific [place] Urine Protein Urine Glucose (UA) Urine Ketones Urine Blood Urine Nitrite Urine Bilirubin Urine Urobilinogen Ur Leukocyte Esterase Urine RBC Urine WBC Ur Epithelial Cells Calcium Oxalate Crystal Urine Bacteria Hyaline Casts Urine Mucus RPR Titer HIV 1&2 Antibody Screen HIV P24 Antigen 02/14/17 02/14/17 02/15/17 21:06 22:47 06:03 WBC RBC Hgb Hct MCV MCHC RDW Plt Count MPV Sodium Potassium Chloride Carbon Dioxide Anion Gap BUN Creatinine Creat Clearance w eGFR POC Glucometer 74 71 53 Random Glucose Calcium Total Bilirubin AST ALT Alkaline Phosphatase Total Protein Albumin Urine Color Urine Appearance Urine pH Ur Specific [place] Urine Protein Urine Glucose (UA) Urine Ketones Urine Blood Urine Nitrite Urine Bilirubin Urine Urobilinogen Ur Leukocyte Esterase Urine RBC Urine WBC Ur Epithelial Cells Calcium Oxalate Crystal Urine Bacteria Hyaline Casts Urine Mucus RPR Titer HIV 1&2 Antibody Screen HIV P24 Antigen 02/15/17 02/15/17 02/15/17 07:36 08:00 12:21 WBC RBC Hgb Hct MCV MCHC RDW Plt Count MPV Sodium Potassium Chloride Carbon Dioxide Anion Gap BUN Creatinine Creat Clearance w eGFR POC Glucometer 62 67 Random Glucose Calcium Total Bilirubin AST ALT Alkaline Phosphatase Total Protein Albumin Urine Color Ade Urine Appearance Cloudy Urine pH 5.0 D Ur Specific [place] Urine Protein 2+ H Urine Glucose (UA) Negative Urine Ketones Negative Urine Blood 3+ H Urine Nitrite Negative Urine Bilirubin Negative Urine Urobilinogen 4.0 e.u/dl Ur Leukocyte Esterase Negative Urine RBC 1231 Urine WBC 3 Ur Epithelial Cells Calcium Oxalate Crystal Few Urine Bacteria Rare Hyaline Casts Urine Mucus RPR Titer HIV 1&2 Antibody Screen HIV P24 Antigen PLAN: TRANSFER PT TO [facility]IA AMBULANCE TODAY. PT MAY SEEK REHAB AFTERCARE IF STABILIZED AND IF PT DESIRES SO. OTHERWISE PT MAY FOLLOW UP WITH HIS PMD DR JOSE BUENROSTRO(NOT SURE SPELLING BUT IN PT'S OWN WORDS) AT [place], [place] FOR MEDICAL MANAGEMENT OF COMORBID CONDITIONS. PT STATED HE HAS APPOINTMENT TO SEE SAID PMD ON 02/18/17.PT WAS ENCOURAGED AND REMINDED TO SEE PMD AFTER ER STABILIZATION .
== END 2017-02-15 13:16 | disposition short-term general hospital (02) | DRG 773 ==
LOC: YASAS 09:00 → Y3N 12:01
PROVIDERS: ADMIT Internal Medicine; ATTEND Internal Medicine
PROC: HZ2ZZZZ Detoxification Services for Substance Abuse Treatment (ICD-10-PCS; principal; 2017-02-11)
DX: F10.230 Alcohol dependence with withdrawal, uncomplicated (principal); F11.20 Opioid dependence, uncomplicated; E11.621 Type 2 diabetes mellitus with foot ulcer; L97.529 Non-pressure chronic ulcer of other part of left foot with unspecified severity; Z79.84 Long term (current) use of oral hypoglycemic drugs; E16.2 Hypoglycemia, unspecified; E66.9 Obesity, unspecified; Z68.35 Body mass index [BMI] 35.0-35.9, adult; I10 Essential (primary) hypertension; B18.2 Chronic viral hepatitis C; N40.0 Benign prostatic hyperplasia without lower urinary tract symptoms; R31.29 Other microscopic hematuria; Z87.891 Personal history of nicotine dependence; W01.0XXA Fall on same level from slipping, tripping and stumbling without subsequent striking against object, initial encounter; Z91.81 History of falling; Y93.89 Activity, other specified; Y92.238 Other place in hospital as the place of occurrence of the external cause
CPT/HCPCS: 36415; 80053; 81003; 81015; 85027; 86593; 87389; 93005; 93010

== ENCOUNTER 2017-02-15 13:33 | Inpatient (IN) | payer OTHER ==
[2017-02-15 13:54] VITALS: BMI 33.9
--- NOTE | 2017-02-15 15:54 | PDOC ---
History of Present Illness - General Chief Complaint: Adult/Elder Abuse Stated Complaint: LOW BLOOD SUGAR Time Seen by Provider: 02/15/17 14:23 History Source: Patient Exam Limitations: No Limitations - History of Present Illness Initial Comments: 02/15/17 14:49 66-year-old male sent over from [facility] for evaluation of continual low blood sugars. Patient states has been there for alcohol detox and has been put on methadone daily. Patient has no complaints of headache, dizziness, chest pain, shortness breath, fever or chills. Patient does state an open wound for the past year to the bottom of his left foot but denies drainage , redness, or worsening symptoms. Patient states has history of diabetes but due to his low sugars and lethargy they have been holding his insulin and Librium. Timing/Duration: unsure Severity: mild Associated Symptoms: reports: weakness Past History - Past Medical History Allergies/Adverse Reactions: Allergies Allergy/AdvReac Type Severity Reaction Status Date / Time No Known Allergies Allergy Verified 02/15/17 13:55 Home Medications: Ambulatory Orders Enalapril Maleate [Vasotec -] 10 mg PO DAILY 02/11/17 Glyburide [Diabeta -] 5 mg PO DAILY 02/11/17 Insulin Glargine,Hum.rec.anlog [Lantus Solostar PEN (NF)] 35 units SQ HS Sitagliptin Phos/Metformin HCl [Janumet 50-1,000 mg Tablet] 1 each PO BID Tamsulosin HCl [Flomax] 0.4 mg PO DAILY 02/11/17 Anemia: No Asthma: No Cancer: No Cardiac Disorders: No CVA: No COPD: No CHF: No Dementia: No Diabetes: Yes GI Disorders: No Disorders: No HTN: Yes Hypercholesterolemia: No Kidney Stones: No Liver Disease: No Suicide Attempt (Hx): No (denies) Seizures: No Thyroid Disease: No - Reproductive History Testicular Surgery: No - Psycho/Social/Smoking Cessation Hx Anxiety: No Suicidal Ideation: No Smoking History: Unknown if ever smoked Have you smoked in the past 12 months: No If you are a former smoker, when did you quit?: 20 years ago Information on smoking cessation initiated: No Hx Alcohol Use: No Drug/Substance Use Hx: No Substance Use Type: Alcohol, Heroin, Opiates Hx Substance Use Treatment: Yes ([facility] last detox a year ago. first time with [facility]) Patient Lives Alone: No Lives with/in: mother Review of Systems - Review of Systems Able to Perform ROS?: Yes Constitutional: Yes: Weakness. No: Chills, Fever HEENTM: No: Symptoms Reported Respiratory: No: Symptoms reported Cardiac (ROS): No: Symptoms Reported ABD/GI: No: Symptoms Reported : No: Symptoms Reported Musculoskeletal: No: Symptoms Reported Integumentary: Yes: Other (left foot wound) Neurological: Yes: Weakness (generalized) Hematologic/Lymphatic: No: Symptoms Reported *Physical Exam - Vital Signs Last Vital Signs Temp Pulse Resp BP Pulse Ox 98.6 F 82 18 152/99 97 02/15/17 13:33 02/15/17 13:33 02/15/17 13:33 02/15/17 13:33 02/15/17 13:33 - Physical Exam General Appearance: Yes: Nourished, Appropriately Dressed. No: Apparent Distress HEENT: positive: EOMI, YAMILA, TMs Normal, Pharynx Normal. negative: Pale Conjunctivae Respiratory/Chest: positive: Lungs Clear, Normal Breath Sounds. negative: Respiratory Distress, Accessory Muscle Use Cardiovascular: positive: Regular Rhythm, Regular Rate. negative: Murmur Gastrointestinal/Abdominal: positive: Soft. negative: Tenderness Musculoskeletal: negative: Vertebral Tenderness Extremity: positive: Normal Capillary Refill, Pedal Edema (pitting 1+) Integumentary: positive: Other (noted 2 x 2 cm with unknown depth open circular to the palmar aspect of his left fifth metatarsal. Surrounding skin intact.) Neurologic: positive: Fully Oriented (but groggy and lethargic), Motor Strength 5/5 ED Treatment Course - LABORATORY CBC & Chemistry Diagram: 02/15/17 16:15 02/15/17 16:15 - ADDITIONAL ORDERS Additional order review: Laboratory Results 02/15/17 14:13 POC Glucometer 83.53698 02/15/17 14:13 POC Glucometer 83.67485 - RADIOLOGY Radiology Studies Ordered: Category Date Time Status CHEST X-RAY PORTABLE* [RAD] Stat Radiology 02/15/17 15:19 Ordered FOOT-LEFT [RAD] Stat Radiology 02/15/17 15:19 Ordered Medical Decision Making - Medical Decision Making 02/15/17 15:37 Patient progressively more lethargic over the past few days at [facility] where he is therefore heroin and alcohol abuse. Patient states is taking methadone but denies any other illicit drug use. Patient states has been eating and drinking but feels mildly generally weak. Patient's BGM here in triage was 83. Patient consented for I imbalance, illicit drug use, elevated ammonia level or infection/sepsis. Workup includes ammonia level, drug toxicology, recent labs, EKG, chest x-ray, foot x-ray secondary to open wound, acetone level. 02/15/17 17:21 Laboratory Tests 02/15/17 02/15/17 02/15/17 16:15 16:15 16:15 WBC 5.6 Hgb 12.3 Hct 38.5 Plt Count 78 L MPV 10.7 Monocytes % 11.3 H Sodium 142 Potassium 4.1 Chloride 104 Carbon Dioxide 28 Anion Gap 10 BUN 11 Creatinine 0.7 Creat Clearance w eGFR > 60 Random Glucose 57 L D Calcium 8.8 Magnesium 1.8 Total Bilirubin 1.0 AST 88 H ALT 59 Alkaline Phosphatase 129 H Ammonia Pending Creatine Kinase 559 H Urine Blood Ur Leukocyte Esterase Methadone Screen Benzodiazepines Screen 02/15/17 02/15/17 16:20 16:20 WBC Hgb Hct Plt Count MPV Monocytes % Sodium Potassium Chloride Carbon Dioxide Anion Gap BUN Creatinine Creat Clearance w eGFR Random Glucose Calcium Magnesium Total Bilirubin AST ALT Alkaline Phosphatase Ammonia Creatine Kinase Urine Blood 3+ H Ur Leukocyte Esterase Trace H Methadone Screen Positive Benzodiazepines Screen Positive 02/15/17 17:31 Patient's MAR was reviewed and was given Librium and methadone. Despite patient eating a sandwich in the ER patient's glucose was noted to be 57. D5NS at 100 ordered. Patient still appears groggy and uncoordinated. ammonia pending. Will discuss admission with hospitalist 02/15/17 18:09 Laboratory Tests 02/15/17 16:15 Ammonia 101.85 H Patient ordered for 20 g of lactulose. Patient will be admitted to [facility]. Case discussed with hospitalist VINI Pascual. *DC/Admit/Observation/Transfer Diagnosis at time of Disposition: Hypoglycemia, Alcohol dependence with uncomplicated withdrawal, Methadone maintenance therapy patient, Hyperammonemia Open wound of foot Qualifiers: Encounter type: initial encounter Laterality: left Qualified Code(s): S91.302A - Unspecified open wound, left foot, initial encounter - Discharge Dispostion Admit: Yes
[2017-02-15 16:43] LABS: BASOPHIL 0.4 % (0-2.0); EOSINOPHIL 2.4 % (0-4.5); MCH 29.3 pg (25.7-33.7); MCHC 31.9 g/dl (32.0-35.9); MEAN CELL VOLUME 91.9 fl (80-96); MEAN PLT VOLUME 10.7 fl (7.5-11.1); NEUTROPHILS 66.2 % (42.8-82.8); RDW 15.9 % (11.9-15.9); WHITE BLOOD COUNT 5.6 K/mm3 (4.0-10.0)
[2017-02-15 17:08] LABS: ALBUMIN 2.9 g/dl (3.4-5.0); ANION GAP 10 (8-16); CALCIUM 8.8 mg/dL (8.5-10.1); CO2 28 mmol/L (21-32); COCKROFT - GAULT 188.99; CREATININE 0.7 mg/dL (0.7-1.3); GLUCOSE,RANDOM 57 mg/dL (74-106); MAGNESIUM 1.8 mg/dL (1.8-2.4); SGOT/AST 88 U/L (15-37); SGPT/ALT 59 U/L (12-78); TOT PROT 7.6 g/dl (6.4-8.2)
[2017-02-15 17:11] LABS: ALK PHOS 129 U/L (45-117); TROPONIN I 0.04 ng/ml (0.00-0.05)
[2017-02-15 17:12] LABS: URINE APPEARANCE SLCLOUDY; URINE BILIRUBIN NEGATIVE (NEGATIVE); URINE COLOR YELLOW; URINE GLUCOSE (UA) NEGATIVE (NEGATIVE); URINE KETONE NEGATIVE (NEGATIVE); URINE NITRITE NEGATIVE (NEGATIVE); URINE PROTEIN NEGATIVE (NEGATIVE); URINE UROBILINOGEN 4.0 E.U/dl E.U./dl (0.2-1.0)
[2017-02-15 17:15] LABS: PLATELET COUNT 78 K/MM3 (134-434)
[2017-02-15 17:16] LABS: PLATELET ESTIMATE DECREASED (NORMAL)
[2017-02-15 17:16] LABS: URINE MARIJUANA THC NEGATIVE ng/ml (CUTOFF=50)
[2017-02-15 17:19] LABS: URINE BLOOD 3+ (NEGATIVE); URINE LEUK ESTERASE TRACE (NEGATIVE)
[2017-02-15 17:24] LABS: CALCIUM OXALATE CRYSTALS RARE /hpf (NONE SEEN); URINE RBC 372 /hpf (0-3); URINE WBC 8 /hpf (3-5)
--- NOTE | 2017-02-15 17:28 | EKG ---
Test Reason : Blood Pressure : / mmHG Vent. Rate : 080 BPM Atrial Rate : 080 BPM P-R Int : 190 ms QRS Dur : 090 ms QT Int : 336 ms P-R-T Axes : 058 000 084 degrees QTc Int : 387 ms NORMAL SINUS RHYTHM POSSIBLE LEFT ATRIAL ENLARGEMENT NONSPECIFIC T WAVE ABNORMALITY ABNORMAL ECG WHEN COMPARED WITH ECG OF 11-FEB-2017 19:09, T WAVE VARIATION Confirmed by MANUELA YO MD ([id number]) on 02/15/2017 5:28:07 PM Referred By: Confirmed By:MANUELA YO MD
[2017-02-15] MEDS ORDERED: DEXTROSE 5%-NORMAL SALINE 1,000 ML IV SCH (17:30)
[2017-02-15] MEDS ORDERED: LACTULOSE 20 GM/30 ML UDC (FOR ORAL USE ONLY) PO ONE (18:08)
[2017-02-15] MEDS ORDERED: LACTULOSE 20 GM/30 ML UDC (FOR ORAL USE ONLY) ONE (18:11)
[2017-02-16 07:00] VITALS: TEMP 98.1
--- NOTE | 2017-02-16 13:07 | HP ---
CHIEF COMPLAINT: " Sent from [facility] for hypoglycemia" PCP: HISTORY OF PRESENT ILLNESS: Patient is a 56 year old male with significant past medical history of substance abuse, chronic foot ulcer, Type II DM, BPH, HTN, Hepatitis C, Obesity was sent from [facility] for the evaluation of hypoglycemia. As per the patient, he didn't have any symptoms except for drowsiness. Denies chest pain, sob, cough, palpitation, abdominal pain, nausea or vomiting. Bowel/Bladder habit normal. Sleep/Appetite normal Patient also reported to have an ulcer at the base of the left foot since 6months. He has been following with his PCP for wound care as outpatient. ER course was notable for: (1) Afebrile, hemodynamically stable, Ammonia-101 (2) D5 Recent Travel: None PAST MEDICAL HISTORY: substance abuse, chronic foot ulcer, Type II DM, BPH, HTN , Hepatitis C, Obesity PAST SURGICAL HISTORY: Not known Social History: Smoking: Former smoker, quit 20 years ago Alcohol: Drinking since age 15, drinks upto 1 pint of vodka and up Drugs: Heroin (inhalation), 5-10 bags/day, started using it since age 35, last use 02/10/17 Family History: Not known Allergies No Known Allergies Allergy (Verified 02/15/17 22:03) HOME MEDICATIONS: Home Medications Medication Instructions Recorded Unobtainable [Unobtainable] 02/15/17 REVIEW OF SYSTEMS CONSTITUTIONAL: Absent: fever, chills, diaphoresis, generalized weakness, malaise, loss of appetite, weight change HEENT: Absent: rhinorrhea, nasal congestion, throat pain, throat swelling, difficulty swallowing, mouth swelling, ear pain, eye pain, visual changes CARDIOVASCULAR: Absent: chest pain, syncope, palpitations, irregular heart rate, lightheadedness , peripheral edema RESPIRATORY: Absent: cough, shortness of breath, dyspnea with exertion, orthopnea, wheezing, stridor, hemoptysis GASTROINTESTINAL: Absent: abdominal pain, abdominal distension, nausea, vomiting, diarrhea, constipation, melena, hematochezia GENITOURINARY: Absent: dysuria, frequency, urgency, hesitancy, hematuria, flank pain, genital pain MUSCULOSKELETAL: Absent: myalgia, arthralgia, joint swelling, back pain, neck pain SKIN: Absent: rash, itching, pallor HEMATOLOGIC/IMMUNOLOGIC: Absent: easy bleeding, easy bruising, lymphadenopathy, frequent infections ENDOCRINE: Absent: unexplained weight gain, unexplained weight loss, heat intolerance, cold intolerance NEUROLOGIC: Absent: headache, focal weakness or paresthesias, dizziness, unsteady gait, seizure, mental status changes, bladder or bowel incontinence PSYCHIATRIC: Absent: anxiety, depression, suicidal or homicidal ideation, hallucinations. PHYSICAL EXAMINATION Vital Signs - 24 hr 02/16/17 10:59 Pulse Rate [ 74 Left] Blood Pressure 146/92 [Left Arm] O2 Sat by Pulse 96 Oximetry (%) GENERAL: Patient is Awake, alert, and fully oriented, in no acute distress. HEAD: Normal with no signs of trauma. EYES:EOM Intact, no pallor or icterus. EARS, NOSE, THROAT: Ears normal. Moist mucous membranes. NECK: Supple LUNGS: Breath sounds equal, clear to auscultation bilaterally. No wheezes, and no crackles. No accessory muscle use. HEART: Regular rate and rhythm, normal S1 and S2 with soft systolic murmur. ABDOMEN: Soft, nontender, not distended, normoactive bowel sounds, no guarding, no rebound, no masses. No hepatomegalyor splenomegaly. MUSCULOSKELETAL: Normal range of motion at all joints. No bony deformities or tenderness. No CVA tenderness. UPPER EXTREMITIES: 2+ pulses, warm, well-perfused. No cyanosis. No clubbing. No peripheral edema. LOWER EXTREMITIES: 2+ pulses, warm, well-perfused. No calf tenderness. No peripheral edema. Left foot: ulcer at the base of the foot, draining serosanguinous fluid. NEUROLOGICAL: No facial droop, bulk/tone normal, power-5/5 in all ext, Cranial nerves II-XII intact. Normal speech. Normal gait. PSYCHIATRIC: Cooperative. Good eye contact. Appropriate mood and affect. SKIN: Warm, dry, normal turgor, no rashes or lesions noted, normal capillary refill. Laboratory Results - last 24 hr 02/16/17 10:00 POC Glucometer 120.83047 ASSESSMENT/PLAN: Patient is a 56 year old male with significant past medical history of substance abuse, chronic foot ulcer, Type II DM, BPH, HTN, Hepatitis C, Obesity was sent from [facility] for the evaluation of hypoglycemia. # Hypoglycemia Was sent from [facility] since he had low blood sugar, decreased PO intake RBS was 57 which resolved after giving fluids (D5) Hold all hypoglycemic drugs for now Diabetic diet # Chronic Left foot ulcer Patient mentioned he goes to his PCP for wound care Has to f/up at the wound care facility once discharged # Substance abuse U. tox positive- Benzodiazepines and Methadone Counseling. As per the [facility] note, patient completed Detox at [facility] on 02/15 Once he is stable, to be sent to [facility]-rehab facility # Type II DM Hold all medication as patient is hypoglycemic. At home, he is On Glimepiride 4mg Daily; Janumet (1tab TID); Insulin levemir 35U # Hyperammonianemia Ammonia level 101 Lactulose 20gm given once # Hypertension Continue Enalapril 10mg PO Daily # FEN D5 Electrolytes normal Regular # Prophyalxis For DVT: On SCDs as patient is ambulating For GI: Not indicated # Code Status: Full Code # Dispo: Placed in observation. Plan is to send to [facility] rehab once he is stable. Call placed to his pharmacy, All medications confirmed. Illness, Investigation and Plan of care explained to the patient. She verbalized understanding. Case seen and discussed with Dr. Aponte. Visit type - Emergency Visit Emergency Visit: Yes ED Registration Date: 02/16/17 Care time: The patient presented to the Emergency Department on the above date and was hospitalized for further evaluation of their emergent condition. - New Patient This patient is new to me today: Yes Date on this admission: 02/16/17 - Critical Care Critical Care patient: No
--- NOTE | 2017-02-16 13:30 | DS ---
Physical Exam: SUBJECTIVE: Patient seen and examined at bed side this morning. Feels much better. No complaints. Denies chest pain, sob, cough, palpitation, abdominal pain, nausea or vomiting. OBJECTIVE: Vital Signs Period Temp Pulse Resp BP Sys/Guevara Pulse Ox Last 24 Hr 74 146/92 96 PHYSICAL EXAM GENERAL: Patient is Awake, alert, and fully oriented, in no acute distress. HEAD: Normal with no signs of trauma. EYES:EOM Intact, no pallor or icterus. EARS, NOSE, THROAT: Ears normal. Moist mucous membranes. NECK: Supple LUNGS: Breath sounds equal, clear to auscultation bilaterally. No wheezes, and no crackles. No accessory muscle use. HEART: Regular rate and rhythm, normal S1 and S2 with soft systolic murmur. ABDOMEN: Soft, nontender, not distended, normoactive bowel sounds, no guarding, no rebound, no masses. No hepatomegalyor splenomegaly. MUSCULOSKELETAL: Normal range of motion at all joints. No bony deformities or tenderness. No CVA tenderness. UPPER EXTREMITIES: 2+ pulses, warm, well-perfused. No cyanosis. No clubbing. No peripheral edema. LOWER EXTREMITIES: 2+ pulses, warm, well-perfused. No calf tenderness. No peripheral edema. Left foot: ulcer at the base of the foot, draining serosanguinous fluid. NEUROLOGICAL: No facial droop, bulk/tone normal, power-5/5 in all ext, Cranial nerves II-XII intact. Normal speech. Normal gait. PSYCHIATRIC: Cooperative. Good eye contact. Appropriate mood and affect. SKIN: Warm, dry, normal turgor, no rashes or lesions noted, normal capillary refill. LABS Laboratory Results - last 24 hr 02/16/17 10:00 POC Glucometer [id number] HOSPITAL COURSE: Date of Admission:02/16/17 Date of Discharge: 02/16/17 Patient is a 56 year old male with significant past medical history of substance abuse, chronic foot ulcer, Type II DM, BPH, HTN, Hepatitis C, Obesity was sent from [facility] for the evaluation of hypoglycemia. Hypoglycemia-Was sent from [facility] since he had low blood sugar, decreased PO intake. RBS was 57 which resolved after giving fluids (D5). All hypoglycemic drugs were on hold. Diabetic diet was given and patient was able to tolerate orally. Since his hypoglycemia resolved ( repeat finger stick glucose was 120), doesn't have any complaints and symptoms, he is afebrile and hemodynamically stable to be sent back to [facility] rehab. Call placed to Dr. Ian Poe who accepted the patient. Transportation was arranged and patient is being sent to [facility] rehab. Chronic Left foot ulcer: Patient mentioned he goes to his PCP for wound care. Has to f/up at the wound care facility once discharged Substance abuse-U. tox positive- Benzodiazepines and Methadone. Counseling. As per the [facility] note, patient completed Detox at [facility] on 02/15/17. To be sent to [facility]-rehab facility Type II DM. All hypoglycemic drugs were on hold. At home, he takes Glimepiride 4mg Daily; Janumet (1tab TID); Insulin levemir 35U Hyperammonianemia-Ammonia level 101. Lactulose 20gm TID PRN upon discharge. Labs to be repeated at [facility] and manage accordingly. Hypertension-Continue Enalapril 10mg PO Daily Call placed to his pharmacy, All medications confirmed. Plan of care explained to the patient. She verbalized understanding. Case seen and discussed with Dr. Aponte. Minutes to complete discharge: 45 Discharge Summary Reason For Visit: HYPERAMMONEMIA Current Active Problems Alcohol dependence with uncomplicated withdrawal (Acute) Hyperammonemia (Acute) Hypoglycemia (Acute) Wound, open, foot (Acute) Methadone maintenance therapy patient (Chronic) Condition: Fair - Instructions Diet, Activity, Other Instructions: You were sent from [facility] since your sugar level was low. Now your sugar level has improved. Spoke with Dr. Ian Wolff over the phone and he is aware that you will be going back to the rehab. Please continue taking your home medication. Since you have a h/o Diabetes, please make sure you eat well before you take the medication for diabetes. Your ammonia level is high, please take Lactulose 20gm TID, as needed. If your symptoms gets worse or you develop any new symptom, please return to the Emergency Department immediately. Referrals: Tucker Sun MD [Staff Physician] - Disposition: [facility] - Home Medications Comprehensive Discharge Medication List: Ambulatory Orders Atorvastatin Calcium 40 mg PO HS 02/16/17 Enalapril Maleate [Vasotec] 10 mg PO DAILY 02/16/17 Glimepiride [Amaryl] 4 mg PO DAILY 02/16/17 Insulin (Levemir) [Levemir Flexpen -] 35 units SQ DAILY 02/16/17 Lactulose (Oral Use) [Cephulac -] 20 gm PO TID PRN #30 bottle 02/16/17 Sitagliptin Phos/Metformin HCl [Janumet Xr 50-1,000 mg Tablet] 1 each PO BID This patient is new to me today: Yes Date on this admission: 02/16/17 Emergency Visit: Yes ED Registration Date: 02/16/17 Care time: The patient presented to the Emergency Department on the above date and was hospitalized for further evaluation of their emergent condition. Critical Care patient: No - Discharge Referral Referred to [facility] Med P.C.: No
[2017-02-16 14:11] VITALS: BP 128/74; PULSE 78
--- NOTE | 2017-02-16 14:46 | PN ---
Teaching Attending Note Name of Resident: Liset Fragoso ATTENDING PHYSICIAN STATEMENT I saw and evaluated the patient. I reviewed the resident's note and discussed the case with the resident. I agree with the resident's findings and plan as documented. SUBJECTIVE:56 year old male that was seen by me on 02/16/17 at 8:30 am , He was hospitalized on 02/15/17 by ED provider with an intent to monitor for hypoglycemia. AT the time of my exam he appears alert and oriented, has no complaints and his BG is 129. OBJECTIVE: Vital Signs Temperature 98.1 F 02/16/17 06:59 Pulse Rate 78 02/16/17 14:00 Respiratory Rate 18 02/16/17 14:00 Blood Pressure 128/74 02/16/17 14:00 O2 Sat by Pulse Oximetry (%) 96 02/16/17 14:00 HEENT - scleral iterus Abd soft NT Heart - s1 s2 WNL\ Lungs - CTA b/l ASSESSMENT AND PLAN: 1. AMS - multifactorial , secondary to hypoglycemia and hepatic encephalopathy . Now resolved Recommendations are to start daily lactulose, discontinue all hypoglycemics Patient will be transferred back to detox facility Arrangements were made by resident. Discharge
[2017-02-16] MEDS ORDERED: ATORVASTATIN CA 40 MG TABLET (FP) PO SCH (22:00)
[2017-02-17] MEDS ORDERED: ENALAPRIL MALEATE 10 MG TABLET (FP) PO SCH (10:00)
== END 2017-02-16 14:05 | disposition other institution (70) | DRG 423 ==
LOC: JER 13:33 → JERBED 18:13 → UNDOADMOB 18:13 → INTOOBSV 18:13 → JERBED 18:30 → OBSVTOIN 02-16 09:55
PROVIDERS: ADMIT Internal Medicine; ATTEND Internal Medicine
DX: E72.20 Disorder of urea cycle metabolism, unspecified (principal); I10 Essential (primary) hypertension; F11.10 Opioid abuse, uncomplicated; E11.621 Type 2 diabetes mellitus with foot ulcer; L97.429 Non-pressure chronic ulcer of left heel and midfoot with unspecified severity; B19.20 Unspecified viral hepatitis C without hepatic coma; N40.0 Benign prostatic hyperplasia without lower urinary tract symptoms; E66.9 Obesity, unspecified; Z68.33 Body mass index [BMI] 33.0-33.9, adult; Z79.84 Long term (current) use of oral hypoglycemic drugs; F10.239 Alcohol dependence with withdrawal, unspecified; Z87.891 Personal history of nicotine dependence
CPT/HCPCS: 36415; 71010-TC; 73630-TC-LT; 76775-TC; 80053; 80307; 81003; 81015; 82140; 82550; 82553; 83735; 84484; 85025; 87040; 87070; 87186; 87205; 93005; 93010; 99284-25; G0378

== ENCOUNTER 2017-02-16 14:45 | Inpatient (IN) | payer OTHER ==
[2017-02-16 16:27] VITALS: BMI 35.2
--- NOTE | 2017-02-16 16:36 | HP ---
[facility] Rehab Assess/Revision - Admission History Admitted to Rehab from: [facility] Date of Admission to Rehab: 02/16/17 - Vital signs Vital Signs: Vital Signs Period Temp Pulse Resp BP Sys/Guevara Pulse Ox Last 24 Hr 97.6 F 79 18 147/85 - Findings Detox History & Physical reviewed: Yes Concur with findings: Yes Comments/Additional Findings: Pt. was sent to ED because of hypoglycemia,he's now stable and euglycemic. We'll adjust doses of pyoglycemic agents.
[2017-02-16] MEDS ORDERED: ACETAMINOPHEN 325 MG TABLET (FP) PO PRN (16:39)
[2017-02-16] MEDS ORDERED: MAGNESIUM CITRATE 300 ML BOTTLE PO PRN (16:39)
[2017-02-16] MEDS ORDERED: MENTHOL/PHENOL 1 EACH UD MM PRN (16:39)
[2017-02-16] MEDS ORDERED: MAGNESIUM HYDROX 2400MG/30ML ORAL SUSPENSION 30 ML CUP PO PRN (16:39)
[2017-02-16] MEDS ORDERED: P-EPHED 60MG/TRIPROLIDI 2.5MG TABLET PO PRN (16:39)
[2017-02-16] MEDS ORDERED: guaiFENesin/D-METHORPHAN HB 10 ML UNIT-DOSE CUPS PO PRN (16:39)
[2017-02-16] MEDS ORDERED: MAG HYDROX/AL HYDROX/SIMETH 30 ML UNIT-DOSE CUP PO PRN (16:39)
[2017-02-16] MEDS ORDERED: LOPERAMIDE HCL 2 MG CAPSULE PO PRN (16:39)
[2017-02-16] MEDS: LACTULOSE 20 GM/30 ML UDC (FOR ORAL USE ONLY) PO SCH ×2 (18:04→21:47)
[2017-02-16] MEDS: IBUPROFEN 400 MG TABLET (FP) PO PRN (18:37)
[2017-02-16] MEDS: ATORVASTATIN CA 40 MG TABLET (FP) PO SCH (21:47)
[2017-02-16] MEDS: THIAMINE HCL 100 MG TABLET (FP) PO SCH (21:47)
[2017-02-16] MEDS: diphenhydrAMINE HCL 50 MG CAPSULE PO PRN (21:49)
[2017-02-16] MEDS: INSULIN DETEMIR 100 UNITS/ML MDV SQ SCH (21:49)
[2017-02-16] MEDS: INSULIN (NOVOLOG) ASPART 100 UNITS/ML 10ML VIAL SQ SCH (21:51)
[2017-02-17] MEDS: LACTULOSE 20 GM/30 ML UDC (FOR ORAL USE ONLY) PO SCH ×3 (06:29→21:57)
[2017-02-17] MEDS: INSULIN (NOVOLOG) ASPART 100 UNITS/ML 10ML VIAL SQ SCH ×4 (06:40→21:59)
[2017-02-17] MEDS: metFORMIN HCL 500 MG TABLET (FP) PO SCH ×2 (08:01→17:08)
[2017-02-17] MEDS: sitaGLIPtin PHOSPHATE 50 MG TABLET PO SCH (08:01)
[2017-02-17] MEDS ORDERED: METHADONE HCL 10 MG TABLET PO SCH (10:00)
[2017-02-17] MEDS ORDERED: METHADONE HCL 40 MG DISPERSABLE TABLET ONE (11:00)
[2017-02-17] MEDS ORDERED: METHADONE HCL 10 MG TABLET ONE (11:00)
[2017-02-17] MEDS: ENALAPRIL MALEATE 10 MG TABLET (FP) PO SCH (11:02)
[2017-02-17] MEDS: METHADONE 80 MG, METHADONE 30 MG PO SCH (11:02)
[2017-02-17] MEDS: PRENATAL VITAMINS W/ FOLIC ACID TABLET (FP) PO SCH (11:02)
[2017-02-17] MEDS: IBUPROFEN 400 MG TABLET (FP) PO PRN (11:06)
[2017-02-17] MEDS ORDERED: PNEUMOC 13-VAL CONJ-DIP CRM/PF 0.5 ML DISP.SYRIN IM ONE (12:00)
[2017-02-17] MEDS ORDERED: PNEUMOCOCCAL 23 VACCINE 0.5 ML VIAL IM ONE (12:00)
--- NOTE | 2017-02-17 13:15 | PN ---
S Progress Note Note: ULCER OF LEFT FOOT,SIZE 2X2 CMS WITH SLIGHT DRAINAGE ,HAS PROBLEM FOR 7 MONTHS, C/S FROM ULCER LEFT FOOT,CLEAN ULCER LEF FOOT WITH NSS THEN SILVADENE CREAM DRESSING DAILY, KEFLEX 500 MGS PO 6 HRS,XRAY LEFT FOOT R/O OSTEOMYELITIS, CBC,CMP IN AM,CANE AMBULATION
--- NOTE | 2017-02-17 13:25 | HP ---
Psychiatrist Admission - Data Date of interview: 02/17/17 Admission source: [facility] Identifying data: This is the first 5 inpatient rehabilitation admission for this 26 year old single black male without children,residing with his 85 year old mother in the [place], currently unemployed. Medical History: HTN, HEP C, and DM. BGM on admission 84mg/dl. Denies any psych history but reports trouble sleeping. Has a left diabetic foot ulcer with a daily wet to dry dressing(does self care as per patient). Patient is on Methadone program with maintenance dose of 110mg daily. Psychiatric History: Patient denies history of psychiatric treatment, however c/ o insomnia. Physical/Sexual Abuse/Trauma History: Patient denies history of sexual, physical and verbal abuse. Vital Signs: Vital Signs - 24 hr 02/16/17 02/16/17 02/17/17 16:25 18:09 00:59 Temperature 97.6 F 98.1 F Pulse Rate 79 82 Respiratory 18 20 18 Rate Blood Pressure 147/85 146/84 02/17/17 02/17/17 03:30 07:16 Temperature 98.1 F Pulse Rate 82 Respiratory 18 18 Rate Blood Pressure 149/91 Allergies/Adverse Reactions: Allergies Allergy/AdvReac Type Severity Reaction Status Date / Time No Known Allergies Allergy Verified 02/16/17 16:19 Date of last physical exam: 02/11/17 Concur with the findings of this exam: Yes - Substance Abuse/Tx History Hx Alcohol Use: Yes (drinking since age 15, drinks up to 1 pint of vodka daily) Hx Substance Use: Yes Substance Use Type: Heroin (5 bags a day, started using at age of 35) Hx Substance Use Treatment: Yes ([facility]) - Admission Criteria Previous failed treatment: Yes Poor recovery environment: Yes Comorbidities: No Lacks judgement: Yes Mental Status Exam - Mental Status Exam Alert and Oriented to: Time, Place, Person Cognitive Function: Good Patient Appearance: Well Groomed Mood: Hopeful Affect: Appropriate, Mood Congruent Patient Behavior: Appropriate, Cooperative Speech Pattern: Appropriate Voice Loudness: Normal Thought Process: Intact, Goal Oriented Thought Disorder: Not Present Hallucinations: Denies Suicidal Ideation: Denies Homicidal Ideation: Denies Insight/Judgement: Fair Sleep: Difficulty falling asleep Appetite: Fair Muscle strength/Tone: Normal Gait/Station: Normal Psychiatric Findings - Problem List ([place] 1, 2,3) (1) Hyperammonemia Current Visit: No Status: Acute (2) Hypoglycemia Current Visit: No Status: Acute (3) Methadone maintenance therapy patient Current Visit: No Status: Chronic Comment: last dose with 110mg today; pending verification (4) BPH (benign prostatic hyperplasia) Current Visit: No Status: Chronic Qualifiers: Lower urinary tract symptom detail: unspecified (5) HTN (hypertension) Current Visit: No Status: Chronic Qualifiers: Hypertension type: essential hypertension Qualified Code(s): I10 - Essential (primary) hypertension (6) Hx of hepatitis C Current Visit: No Status: Chronic (7) Alcohol dependence Current Visit: Yes Status: Acute (8) Opioid dependence Current Visit: Yes Status: Acute (9) Opioid-induced sleep disorder Current Visit: Yes Status: Acute - Initial Treatment Plan Initial Treatment Plan: Discussed indications/properties of Belsomra, patient agreed to start meds, will add Belsomra 10 mg po hs , monitor progress as needed.
[2017-02-17] MEDS: AMMONIUM LACTATE 12% LOTION 225 GM BOTTLE TP SCH ×2 (14:42→21:57)
[2017-02-17] MEDS: SILVER SULFADIAZINE 1% TOP CREAM 50 GM JAR TP SCH ×2 (15:41→21:58)
[2017-02-17] MEDS: CEPHALEXIN MONOHYDRATE 500 MG CAPSULE (UD) PO SCH ×2 (17:08→23:25)
[2017-02-17] MEDS: ATORVASTATIN CA 40 MG TABLET (FP) PO SCH (21:58)
[2017-02-17] MEDS: INSULIN DETEMIR 100 UNITS/ML MDV SQ SCH (21:58)
[2017-02-17] MEDS: THIAMINE HCL 100 MG TABLET (FP) PO SCH (21:58)
[2017-02-17] MEDS: SUVOREXANT 10 MG TABLET PO PRN (21:59)
[2017-02-18] MEDS: LACTULOSE 20 GM/30 ML UDC (FOR ORAL USE ONLY) PO SCH ×3 (06:50→22:42)
[2017-02-18] MEDS: metFORMIN HCL 500 MG TABLET (FP) PO SCH ×2 (06:50→17:11)
[2017-02-18] MEDS: CEPHALEXIN MONOHYDRATE 500 MG CAPSULE (UD) PO SCH ×3 (06:50→17:11)
[2017-02-18] MEDS: sitaGLIPtin PHOSPHATE 50 MG TABLET PO SCH (06:50)
[2017-02-18] MEDS: INSULIN (NOVOLOG) ASPART 100 UNITS/ML 10ML VIAL SQ SCH ×4 (07:04→22:46)
[2017-02-18] MEDS ORDERED: METHADONE HCL 10 MG TABLET ONE (08:50)
[2017-02-18] MEDS ORDERED: METHADONE HCL 40 MG DISPERSABLE TABLET ONE (08:51)
[2017-02-18 10:06] LABS: MCH 30.3 pg (25.7-33.7); MCHC 32.8 g/dl (32.0-35.9); MEAN CELL VOLUME 92.4 fl (80-96); MEAN PLT VOLUME 10.1 fl (7.5-11.1); PLATELET COUNT 76 K/MM3 (134-434); RDW 15.4 % (11.9-15.9); WHITE BLOOD COUNT 4.4 K/mm3 (4.0-10.0)
[2017-02-18] MEDS: METHADONE 80 MG, METHADONE 30 MG PO SCH (10:21)
[2017-02-18] MEDS: ENALAPRIL MALEATE 10 MG TABLET (FP) PO SCH (10:22)
[2017-02-18] MEDS: PRENATAL VITAMINS W/ FOLIC ACID TABLET (FP) PO SCH (10:22)
[2017-02-18] MEDS: IBUPROFEN 400 MG TABLET (FP) PO PRN (10:24)
[2017-02-18 10:46] LABS: ALBUMIN 2.8 g/dl (3.4-5.0); ALK PHOS 125 U/L (45-117); ANION GAP 6 (8-16); BILIRUBIN,TOTAL 1.1 mg/dL (0.2-1.0); CALCIUM 8.5 mg/dL (8.5-10.1); CO2 28 mmol/L (21-32); CREATININE 0.7 mg/dL (0.7-1.3); GLUCOSE,RANDOM 93 mg/dL (74-106); SGOT/AST 76 U/L (15-37); SGPT/ALT 57 U/L (12-78); TOT PROT 7.4 g/dl (6.4-8.2)
[2017-02-18] MEDS: AMMONIUM LACTATE 12% LOTION 225 GM BOTTLE TP SCH ×2 (13:16→22:42)
[2017-02-18] MEDS: SILVER SULFADIAZINE 1% TOP CREAM 50 GM JAR TP SCH ×2 (14:31→22:44)
[2017-02-18] MEDS: ATORVASTATIN CA 40 MG TABLET (FP) PO SCH (22:44)
[2017-02-18] MEDS: THIAMINE HCL 100 MG TABLET (FP) PO SCH (22:44)
[2017-02-18] MEDS: diphenhydrAMINE HCL 50 MG CAPSULE PO PRN (22:45)
[2017-02-18] MEDS: INSULIN DETEMIR 100 UNITS/ML MDV SQ SCH (22:47)
[2017-02-19] MEDS: CEPHALEXIN MONOHYDRATE 500 MG CAPSULE (UD) PO SCH ×5 (00:50→23:32)
[2017-02-19] MEDS: LACTULOSE 20 GM/30 ML UDC (FOR ORAL USE ONLY) PO SCH ×2 (06:48→14:50)
[2017-02-19] MEDS: INSULIN (NOVOLOG) ASPART 100 UNITS/ML 10ML VIAL SQ SCH ×4 (06:51→22:34)
[2017-02-19] MEDS: sitaGLIPtin PHOSPHATE 50 MG TABLET PO SCH (07:59)
[2017-02-19] MEDS: metFORMIN HCL 500 MG TABLET (FP) PO SCH ×2 (07:59→17:24)
[2017-02-19] MEDS ORDERED: METHADONE HCL 10 MG TABLET ONE (08:50)
[2017-02-19] MEDS ORDERED: METHADONE HCL 40 MG DISPERSABLE TABLET ONE (08:51)
[2017-02-19] MEDS: METHADONE 80 MG, METHADONE 30 MG PO SCH (10:12)
[2017-02-19] MEDS: ENALAPRIL MALEATE 10 MG TABLET (FP) PO SCH (10:13)
[2017-02-19] MEDS: PRENATAL VITAMINS W/ FOLIC ACID TABLET (FP) PO SCH (10:13)
[2017-02-19] MEDS: SILVER SULFADIAZINE 1% TOP CREAM 50 GM JAR TP SCH ×3 (10:13→22:35)
[2017-02-19] MEDS: AMMONIUM LACTATE 12% LOTION 225 GM BOTTLE TP SCH ×2 (10:13→22:33)
--- NOTE | 2017-02-19 14:55 | PN ---
S Progress Note Note: Wound is positive for MSSA, current tx. consist of silvadene cream. P : Bactrim DS BID
[2017-02-19] MEDS ORDERED: SULFAMETHOXAZOLE/TRIMETHOPRIM 800MG/160MG D.S. TABLET PO ONE (15:00)
[2017-02-19] MEDS: THIAMINE HCL 100 MG TABLET (FP) PO SCH (22:31)
[2017-02-19] MEDS: SULFAMETHOXAZOLE/TRIMETHOPRIM 800MG/160MG D.S. TABLET PO SCH (22:31)
[2017-02-19] MEDS: SUVOREXANT 10 MG TABLET PO PRN (22:32)
[2017-02-19] MEDS: INSULIN DETEMIR 100 UNITS/ML MDV SQ SCH (22:34)
[2017-02-19] MEDS: ATORVASTATIN CA 40 MG TABLET (FP) PO SCH (23:09)
[2017-02-20] MEDS: CEPHALEXIN MONOHYDRATE 500 MG CAPSULE (UD) PO SCH ×3 (06:27→17:37)
[2017-02-20] MEDS: INSULIN (NOVOLOG) ASPART 100 UNITS/ML 10ML VIAL SQ SCH ×4 (06:29→21:29)
[2017-02-20] MEDS: metFORMIN HCL 500 MG TABLET (FP) PO SCH ×2 (08:45→16:58)
[2017-02-20] MEDS: sitaGLIPtin PHOSPHATE 50 MG TABLET PO SCH (08:45)
[2017-02-20] MEDS ORDERED: METHADONE HCL 10 MG TABLET ONE (09:14)
[2017-02-20] MEDS ORDERED: METHADONE HCL 40 MG DISPERSABLE TABLET ONE (09:15)
[2017-02-20 10:38] LABS: BILIRUBIN,TOTAL 0.9 mg/dL (0.2-1.0)
[2017-02-20] MEDS: ENALAPRIL MALEATE 10 MG TABLET (FP) PO SCH (10:40)
[2017-02-20] MEDS: SULFAMETHOXAZOLE/TRIMETHOPRIM 800MG/160MG D.S. TABLET PO SCH ×2 (10:40→21:27)
[2017-02-20] MEDS: METHADONE 80 MG, METHADONE 30 MG PO SCH (10:40)
[2017-02-20] MEDS: PRENATAL VITAMINS W/ FOLIC ACID TABLET (FP) PO SCH (10:40)
[2017-02-20] MEDS: SILVER SULFADIAZINE 1% TOP CREAM 50 GM JAR TP SCH ×2 (10:42→21:28)
[2017-02-20] MEDS: AMMONIUM LACTATE 12% LOTION 225 GM BOTTLE TP SCH ×2 (10:42→21:30)
[2017-02-20] MEDS: THIAMINE HCL 100 MG TABLET (FP) PO SCH (21:27)
[2017-02-20] MEDS: SUVOREXANT 10 MG TABLET PO PRN (21:27)
[2017-02-20] MEDS: ATORVASTATIN CA 40 MG TABLET (FP) PO SCH (21:27)
[2017-02-20] MEDS: INSULIN DETEMIR 100 UNITS/ML MDV SQ SCH (21:29)
[2017-02-21] MEDS: CEPHALEXIN MONOHYDRATE 500 MG CAPSULE (UD) PO SCH ×4 (01:02→18:17)
[2017-02-21] MEDS: metFORMIN HCL 500 MG TABLET (FP) PO SCH ×2 (06:08→16:46)
[2017-02-21] MEDS: sitaGLIPtin PHOSPHATE 50 MG TABLET PO SCH (06:08)
[2017-02-21] MEDS: INSULIN (NOVOLOG) ASPART 100 UNITS/ML 10ML VIAL SQ SCH ×2 (06:40→12:16)
[2017-02-21] MEDS ORDERED: METHADONE HCL 10 MG TABLET ONE (09:44)
[2017-02-21] MEDS ORDERED: METHADONE HCL 40 MG DISPERSABLE TABLET ONE (09:45)
[2017-02-21] MEDS: METHADONE 80 MG, METHADONE 30 MG PO SCH (10:43)
[2017-02-21] MEDS: SILVER SULFADIAZINE 1% TOP CREAM 50 GM JAR TP SCH ×2 (10:44→22:01)
[2017-02-21] MEDS: SULFAMETHOXAZOLE/TRIMETHOPRIM 800MG/160MG D.S. TABLET PO SCH ×2 (10:44→22:01)
[2017-02-21] MEDS: AMMONIUM LACTATE 12% LOTION 225 GM BOTTLE TP SCH ×2 (10:44→22:01)
[2017-02-21] MEDS: ENALAPRIL MALEATE 10 MG TABLET (FP) PO SCH (10:44)
[2017-02-21] MEDS: PRENATAL VITAMINS W/ FOLIC ACID TABLET (FP) PO SCH (10:44)
[2017-02-21] MEDS ORDERED: PT OWN MED DRAWER 7, Y5N ONE (11:23)
[2017-02-21] MEDS: INSULIN DETEMIR 100 UNITS/ML MDV SQ SCH (22:00)
[2017-02-21] MEDS: THIAMINE HCL 100 MG TABLET (FP) PO SCH (22:01)
[2017-02-21] MEDS: ATORVASTATIN CA 40 MG TABLET (FP) PO SCH (22:01)
[2017-02-21] MEDS: diphenhydrAMINE HCL 50 MG CAPSULE PO PRN (22:02)
[2017-02-22] MEDS: diphenhydrAMINE HCL 50 MG CAPSULE PO PRN ×2 (01:33→22:00)
[2017-02-22] MEDS: sitaGLIPtin PHOSPHATE 50 MG TABLET PO SCH (06:25)
[2017-02-22] MEDS: CEPHALEXIN MONOHYDRATE 500 MG CAPSULE (UD) PO SCH ×4 (06:25→17:01)
[2017-02-22] MEDS: metFORMIN HCL 500 MG TABLET (FP) PO SCH ×2 (06:25→17:01)
[2017-02-22] MEDS ORDERED: METHADONE HCL 10 MG TABLET ONE (08:28)
[2017-02-22] MEDS ORDERED: METHADONE HCL 40 MG DISPERSABLE TABLET ONE (08:29)
[2017-02-22] MEDS: SULFAMETHOXAZOLE/TRIMETHOPRIM 800MG/160MG D.S. TABLET PO SCH ×2 (10:35→21:54)
[2017-02-22] MEDS: ENALAPRIL MALEATE 10 MG TABLET (FP) PO SCH (10:36)
[2017-02-22] MEDS: PRENATAL VITAMINS W/ FOLIC ACID TABLET (FP) PO SCH (10:36)
[2017-02-22] MEDS: SILVER SULFADIAZINE 1% TOP CREAM 50 GM JAR TP SCH ×2 (10:36→21:55)
[2017-02-22] MEDS: METHADONE 80 MG, METHADONE 30 MG PO SCH (10:36)
[2017-02-22] MEDS: AMMONIUM LACTATE 12% LOTION 225 GM BOTTLE TP SCH ×2 (10:36→21:58)
[2017-02-22] MEDS: ATORVASTATIN CA 40 MG TABLET (FP) PO SCH (21:54)
[2017-02-22] MEDS: METHYL SALICYLATE/MENTHOL OINT 30 GM TUBE TP SCH (21:55)
[2017-02-22] MEDS: INSULIN DETEMIR 100 UNITS/ML MDV SQ SCH (21:56)
[2017-02-22] MEDS: THIAMINE HCL 100 MG TABLET (FP) PO SCH (21:59)
[2017-02-22] MEDS: IBUPROFEN 400 MG TABLET (FP) PO PRN (22:00)
[2017-02-23] MEDS: CEPHALEXIN MONOHYDRATE 500 MG CAPSULE (UD) PO SCH ×5 (00:34→23:36)
[2017-02-23] MEDS ORDERED: METHADONE HCL 10 MG TABLET ONE (08:47)
[2017-02-23] MEDS ORDERED: METHADONE HCL 40 MG DISPERSABLE TABLET ONE (08:48)
[2017-02-23] MEDS: sitaGLIPtin PHOSPHATE 50 MG TABLET PO SCH (08:56)
[2017-02-23] MEDS: metFORMIN HCL 500 MG TABLET (FP) PO SCH ×2 (08:56→16:58)
[2017-02-23] MEDS ORDERED: SILVER SULFADIAZINE 1% TOP CREAM 50 GM JAR TP SCH (10:30)
[2017-02-23] MEDS: METHYL SALICYLATE/MENTHOL OINT 30 GM TUBE TP SCH ×2 (10:30→21:40)
[2017-02-23] MEDS: SULFAMETHOXAZOLE/TRIMETHOPRIM 800MG/160MG D.S. TABLET PO SCH ×2 (10:30→21:39)
[2017-02-23] MEDS: SILVER SULFADIAZINE 1% TOP CREAM 50 GM JAR TP SCH ×2 (10:31→21:39)
[2017-02-23] MEDS: ENALAPRIL MALEATE 10 MG TABLET (FP) PO SCH (10:31)
[2017-02-23] MEDS: METHADONE 80 MG, METHADONE 30 MG PO SCH (10:31)
[2017-02-23] MEDS: IBUPROFEN 400 MG TABLET (FP) PO PRN (10:31)
[2017-02-23] MEDS: PRENATAL VITAMINS W/ FOLIC ACID TABLET (FP) PO SCH (10:32)
[2017-02-23] MEDS: AMMONIUM LACTATE 12% LOTION 225 GM BOTTLE TP SCH ×2 (10:33→21:41)
[2017-02-23] MEDS: CYCLOBENZAPRINE HCL 10 MG TABLET (FP) PO PRN (16:59)
[2017-02-23] MEDS: ATORVASTATIN CA 40 MG TABLET (FP) PO SCH (21:39)
[2017-02-23] MEDS: INSULIN DETEMIR 100 UNITS/ML MDV SQ SCH (21:39)
[2017-02-23] MEDS: THIAMINE HCL 100 MG TABLET (FP) PO SCH (21:39)
[2017-02-24] MEDS: CYCLOBENZAPRINE HCL 10 MG TABLET (FP) PO PRN (06:27)
[2017-02-24] MEDS: sitaGLIPtin PHOSPHATE 50 MG TABLET PO SCH (06:27)
[2017-02-24] MEDS: metFORMIN HCL 500 MG TABLET (FP) PO SCH ×2 (06:27→17:01)
[2017-02-24] MEDS: CEPHALEXIN MONOHYDRATE 500 MG CAPSULE (UD) PO SCH ×3 (06:27→17:01)
[2017-02-24] MEDS ORDERED: METHADONE HCL 10 MG TABLET ONE (08:41)
[2017-02-24] MEDS ORDERED: METHADONE HCL 40 MG DISPERSABLE TABLET ONE (08:41)
[2017-02-24] MEDS: PRENATAL VITAMINS W/ FOLIC ACID TABLET (FP) PO SCH (10:40)
[2017-02-24] MEDS: SILVER SULFADIAZINE 1% TOP CREAM 50 GM JAR TP SCH ×2 (10:40→21:58)
[2017-02-24] MEDS: ENALAPRIL MALEATE 10 MG TABLET (FP) PO SCH (10:40)
[2017-02-24] MEDS: SULFAMETHOXAZOLE/TRIMETHOPRIM 800MG/160MG D.S. TABLET PO SCH ×2 (10:40→21:55)
[2017-02-24] MEDS: METHADONE 80 MG, METHADONE 30 MG PO SCH (10:41)
[2017-02-24] MEDS: METHYL SALICYLATE/MENTHOL OINT 30 GM TUBE TP SCH ×2 (10:41→21:57)
[2017-02-24] MEDS: AMMONIUM LACTATE 12% LOTION 225 GM BOTTLE TP SCH ×2 (10:42→21:59)
[2017-02-24] MEDS: IBUPROFEN 400 MG TABLET (FP) PO PRN ×2 (10:44→17:02)
[2017-02-24] MEDS: ATORVASTATIN CA 40 MG TABLET (FP) PO SCH (21:55)
[2017-02-24] MEDS: THIAMINE HCL 100 MG TABLET (FP) PO SCH (21:55)
[2017-02-24] MEDS: INSULIN DETEMIR 100 UNITS/ML MDV SQ SCH (22:01)
[2017-02-25] MEDS: sitaGLIPtin PHOSPHATE 50 MG TABLET PO SCH (06:42)
[2017-02-25] MEDS: metFORMIN HCL 500 MG TABLET (FP) PO SCH ×2 (06:42→16:55)
[2017-02-25] MEDS ORDERED: METHADONE HCL 10 MG TABLET ONE (09:01)
[2017-02-25] MEDS ORDERED: METHADONE HCL 40 MG DISPERSABLE TABLET ONE (09:01)
[2017-02-25] MEDS: IBUPROFEN 400 MG TABLET (FP) PO PRN (10:17)
[2017-02-25] MEDS: METHYL SALICYLATE/MENTHOL OINT 30 GM TUBE TP SCH ×2 (10:18→22:01)
[2017-02-25] MEDS: METHADONE 80 MG, METHADONE 30 MG PO SCH (10:18)
[2017-02-25] MEDS: SILVER SULFADIAZINE 1% TOP CREAM 50 GM JAR TP SCH ×2 (10:19→22:01)
[2017-02-25] MEDS: SULFAMETHOXAZOLE/TRIMETHOPRIM 800MG/160MG D.S. TABLET PO SCH ×2 (10:19→22:00)
[2017-02-25] MEDS: ENALAPRIL MALEATE 10 MG TABLET (FP) PO SCH (10:19)
[2017-02-25] MEDS: PRENATAL VITAMINS W/ FOLIC ACID TABLET (FP) PO SCH (10:19)
[2017-02-25] MEDS: AMMONIUM LACTATE 12% LOTION 225 GM BOTTLE TP SCH ×2 (10:20→22:01)
[2017-02-25] MEDS: CYCLOBENZAPRINE HCL 10 MG TABLET (FP) PO PRN (16:57)
[2017-02-25] MEDS: THIAMINE HCL 100 MG TABLET (FP) PO SCH (22:00)
[2017-02-25] MEDS: ATORVASTATIN CA 40 MG TABLET (FP) PO SCH (22:00)
[2017-02-25] MEDS: INSULIN DETEMIR 100 UNITS/ML MDV SQ SCH (22:02)
[2017-02-26] MEDS: metFORMIN HCL 500 MG TABLET (FP) PO SCH ×2 (06:24→17:02)
[2017-02-26] MEDS: CYCLOBENZAPRINE HCL 10 MG TABLET (FP) PO PRN (06:24)
[2017-02-26] MEDS: sitaGLIPtin PHOSPHATE 50 MG TABLET PO SCH (06:24)
[2017-02-26] MEDS: IBUPROFEN 400 MG TABLET (FP) PO PRN ×2 (06:56→22:56)
[2017-02-26] MEDS ORDERED: METHADONE HCL 10 MG TABLET ONE (08:45)
[2017-02-26] MEDS ORDERED: METHADONE HCL 40 MG DISPERSABLE TABLET ONE (08:45)
[2017-02-26] MEDS: METHADONE 80 MG, METHADONE 30 MG PO SCH (09:03)
[2017-02-26] MEDS: SULFAMETHOXAZOLE/TRIMETHOPRIM 800MG/160MG D.S. TABLET PO SCH (09:05)
[2017-02-26] MEDS: PRENATAL VITAMINS W/ FOLIC ACID TABLET (FP) PO SCH (09:05)
[2017-02-26] MEDS: ENALAPRIL MALEATE 10 MG TABLET (FP) PO SCH (09:05)
[2017-02-26] MEDS: AMMONIUM LACTATE 12% LOTION 225 GM BOTTLE TP SCH ×2 (09:06→23:42)
[2017-02-26] MEDS: SILVER SULFADIAZINE 1% TOP CREAM 50 GM JAR TP SCH ×2 (09:06→23:42)
[2017-02-26] MEDS: METHYL SALICYLATE/MENTHOL OINT 30 GM TUBE TP SCH ×2 (09:06→23:42)
[2017-02-26] MEDS: THIAMINE HCL 100 MG TABLET (FP) PO SCH (22:52)
[2017-02-26] MEDS: diphenhydrAMINE HCL 50 MG CAPSULE PO PRN (22:52)
[2017-02-26] MEDS: ATORVASTATIN CA 40 MG TABLET (FP) PO SCH (22:56)
[2017-02-26] MEDS: INSULIN DETEMIR 100 UNITS/ML MDV SQ SCH (23:42)
[2017-02-27] MEDS: metFORMIN HCL 500 MG TABLET (FP) PO SCH ×2 (06:07→16:43)
[2017-02-27] MEDS: sitaGLIPtin PHOSPHATE 50 MG TABLET PO SCH (06:07)
[2017-02-27] MEDS: IBUPROFEN 400 MG TABLET (FP) PO PRN ×2 (06:08→16:44)
[2017-02-27] MEDS ORDERED: METHADONE HCL 10 MG TABLET ONE (09:09)
[2017-02-27] MEDS ORDERED: METHADONE HCL 40 MG DISPERSABLE TABLET ONE (09:09)
[2017-02-27] MEDS: METHADONE 80 MG, METHADONE 30 MG PO SCH (10:30)
[2017-02-27] MEDS: PRENATAL VITAMINS W/ FOLIC ACID TABLET (FP) PO SCH (10:30)
[2017-02-27] MEDS: ENALAPRIL MALEATE 10 MG TABLET (FP) PO SCH (10:30)
[2017-02-27] MEDS: SILVER SULFADIAZINE 1% TOP CREAM 50 GM JAR TP SCH ×2 (10:32→21:50)
[2017-02-27] MEDS: METHYL SALICYLATE/MENTHOL OINT 30 GM TUBE TP SCH ×2 (10:32→22:18)
[2017-02-27] MEDS: AMMONIUM LACTATE 12% LOTION 225 GM BOTTLE TP SCH ×2 (10:33→22:18)
[2017-02-27] MEDS: CYCLOBENZAPRINE HCL 10 MG TABLET (FP) PO PRN (16:44)
[2017-02-27] MEDS: THIAMINE HCL 100 MG TABLET (FP) PO SCH (21:49)
[2017-02-27] MEDS: INSULIN DETEMIR 100 UNITS/ML MDV SQ SCH (21:49)
[2017-02-27] MEDS: diphenhydrAMINE HCL 50 MG CAPSULE PO PRN (21:50)
[2017-02-27] MEDS: ATORVASTATIN CA 40 MG TABLET (FP) PO SCH (22:18)
[2017-02-28] MEDS: sitaGLIPtin PHOSPHATE 50 MG TABLET PO SCH (06:11)
[2017-02-28] MEDS: metFORMIN HCL 500 MG TABLET (FP) PO SCH ×2 (06:11→16:28)
[2017-02-28] MEDS ORDERED: CYCLOBENZAPRINE HCL 10 MG TABLET (FP) PO PRN (06:16)
[2017-02-28] MEDS ORDERED: METHADONE HCL 10 MG TABLET ONE (08:40)
[2017-02-28] MEDS ORDERED: METHADONE HCL 40 MG DISPERSABLE TABLET ONE (08:41)
[2017-02-28] MEDS: METHYL SALICYLATE/MENTHOL OINT 30 GM TUBE TP SCH ×2 (10:45→22:12)
[2017-02-28] MEDS: METHADONE 80 MG, METHADONE 30 MG PO SCH (10:46)
[2017-02-28] MEDS: PRENATAL VITAMINS W/ FOLIC ACID TABLET (FP) PO SCH (10:47)
[2017-02-28] MEDS: AMMONIUM LACTATE 12% LOTION 225 GM BOTTLE TP SCH ×2 (10:48→22:13)
[2017-02-28] MEDS: ENALAPRIL MALEATE 10 MG TABLET (FP) PO SCH (10:48)
[2017-02-28] MEDS: SILVER SULFADIAZINE 1% TOP CREAM 50 GM JAR TP SCH ×2 (10:48→22:26)
[2017-02-28] MEDS: ATORVASTATIN CA 40 MG TABLET (FP) PO SCH (21:53)
[2017-02-28] MEDS: INSULIN DETEMIR 100 UNITS/ML MDV SQ SCH (21:53)
[2017-02-28] MEDS: THIAMINE HCL 100 MG TABLET (FP) PO SCH (21:54)
[2017-02-28] MEDS: diphenhydrAMINE HCL 50 MG CAPSULE PO PRN (21:55)
[2017-03-01] MEDS: sitaGLIPtin PHOSPHATE 50 MG TABLET PO SCH (06:53)
[2017-03-01] MEDS: metFORMIN HCL 500 MG TABLET (FP) PO SCH ×3 (06:53→17:39)
[2017-03-01] MEDS ORDERED: METHADONE HCL 10 MG TABLET ONE (09:05)
[2017-03-01] MEDS ORDERED: METHADONE HCL 40 MG DISPERSABLE TABLET ONE (09:06)
--- NOTE | 2017-03-01 09:07 | PN ---
[facility] Progress Note Note: INSOMNIA BENADRYL DID NOT HELP,VISTARIL 100 MGS PO HS FOR INSOMNIA
[2017-03-01] MEDS: METHADONE 80 MG, METHADONE 30 MG PO SCH (10:31)
[2017-03-01] MEDS: PRENATAL VITAMINS W/ FOLIC ACID TABLET (FP) PO SCH (10:32)
[2017-03-01] MEDS: METHYL SALICYLATE/MENTHOL OINT 30 GM TUBE TP SCH ×2 (10:32→21:55)
[2017-03-01] MEDS: ENALAPRIL MALEATE 10 MG TABLET (FP) PO SCH (10:32)
[2017-03-01] MEDS: SILVER SULFADIAZINE 1% TOP CREAM 50 GM JAR TP SCH ×2 (10:33→21:58)
[2017-03-01] MEDS: AMMONIUM LACTATE 12% LOTION 225 GM BOTTLE TP SCH ×2 (10:33→21:56)
[2017-03-01] MEDS: INSULIN DETEMIR 100 UNITS/ML MDV SQ SCH (21:56)
[2017-03-01] MEDS: THIAMINE HCL 100 MG TABLET (FP) PO SCH (21:58)
[2017-03-01] MEDS: ATORVASTATIN CA 40 MG TABLET (FP) PO SCH (21:58)
[2017-03-01] MEDS: hydrOXYzine PAMOATE 50 MG CAPSULE (FP) PO SCH (21:59)
[2017-03-02] MEDS: metFORMIN HCL 500 MG TABLET (FP) PO SCH ×2 (06:32→16:57)
[2017-03-02] MEDS: sitaGLIPtin PHOSPHATE 50 MG TABLET PO SCH (06:32)
[2017-03-02] MEDS ORDERED: METHADONE HCL 40 MG DISPERSABLE TABLET ONE (08:25)
[2017-03-02] MEDS ORDERED: METHADONE HCL 10 MG TABLET ONE (08:25)
[2017-03-02 09:53] LABS: URINE APPEARANCE CLEAR; URINE BILIRUBIN NEGATIVE (NEGATIVE); URINE BLOOD 2+ (NEGATIVE); URINE COLOR YELLOW; URINE GLUCOSE (UA) NEGATIVE (NEGATIVE); URINE KETONE NEGATIVE (NEGATIVE); URINE LEUK ESTERASE NEGATIVE (NEGATIVE); URINE NITRITE NEGATIVE (NEGATIVE); URINE PROTEIN NEGATIVE (NEGATIVE); URINE UROBILINOGEN 4.0 E.U/dl E.U./dl (0.2-1.0)
[2017-03-02 10:01] LABS: URINE MUCUS RARE; URINE RBC 46 /hpf (0-3); URINE WBC 3 /hpf (3-5)
[2017-03-02] MEDS: METHADONE 80 MG, METHADONE 30 MG PO SCH (10:31)
[2017-03-02] MEDS: ENALAPRIL MALEATE 10 MG TABLET (FP) PO SCH (10:33)
[2017-03-02] MEDS: PRENATAL VITAMINS W/ FOLIC ACID TABLET (FP) PO SCH (10:33)
[2017-03-02] MEDS: SULFAMETHOXAZOLE/TRIMETHOPRIM 800MG/160MG D.S. TABLET PO SCH ×2 (10:33→21:29)
[2017-03-02] MEDS: METHYL SALICYLATE/MENTHOL OINT 30 GM TUBE TP SCH ×2 (10:34→21:29)
[2017-03-02] MEDS: SILVER SULFADIAZINE 1% TOP CREAM 50 GM JAR TP SCH ×2 (10:34→21:29)
[2017-03-02] MEDS: AMMONIUM LACTATE 12% LOTION 225 GM BOTTLE TP SCH ×2 (10:34→21:29)
[2017-03-02] MEDS: hydrOXYzine PAMOATE 50 MG CAPSULE (FP) PO SCH (21:28)
[2017-03-02] MEDS: ATORVASTATIN CA 40 MG TABLET (FP) PO SCH (21:28)
[2017-03-02] MEDS: THIAMINE HCL 100 MG TABLET (FP) PO SCH (21:28)
[2017-03-02] MEDS: INSULIN DETEMIR 100 UNITS/ML MDV SQ SCH (21:29)
[2017-03-03] MEDS ORDERED: METHADONE HCL 10 MG TABLET PO SCH (06:00)
[2017-03-03] MEDS: metFORMIN HCL 500 MG TABLET (FP) PO SCH ×2 (06:32→16:40)
[2017-03-03] MEDS: sitaGLIPtin PHOSPHATE 50 MG TABLET PO SCH (06:32)
--- NOTE | 2017-03-03 08:50 | PN ---
[facility] Progress Note Note: Laboratory Last Values WBC 4.4 K/mm3 (4.0-10.0) 02/18/17 07:00 RBC 4.16 M/mm3 (4.00-5.60) 02/18/17 07:00 Hgb 12.6 GM/dL (11.7-16.9) 02/18/17 07:00 Hct 38.5 % (35.4-49) 02/18/17 07:00 MCV 92.4 fl (80-96) 02/18/17 07:00 MCHC 32.8 g/dl (32.0-35.9) 02/18/17 07:00 RDW 15.4 % (11.9-15.9) 02/18/17 07:00 Plt Count 76 K/MM3 (134-434) L 02/18/17 07:00 MPV 10.1 fl (7.5-11.1) 02/18/17 07:00 Sodium 141 mmol/L (136-145) 02/18/17 07:00 Potassium 3.7 mmol/L (3.5-5.1) 02/18/17 07:00 Chloride 107 mmol/L (98-107) 02/18/17 07:00 Carbon Dioxide 28 mmol/L (21-32) 02/18/17 07:00 Anion Gap 6 (8-16) L 02/18/17 07:00 BUN 8 mg/dL (7-18) D 02/18/17 07:00 Creatinine 0.7 mg/dL (0.7-1.3) 02/18/17 07:00 Creat Clearance w eGFR > 60 (>60) 02/18/17 07:00 POC Glucometer 101 UNITS (()) 03/03/17 06:32 Random Glucose 93 mg/dL (74-106) D 02/18/17 07:00 Calcium 8.5 mg/dL (8.5-10.1) 02/18/17 07:00 Total Bilirubin 0.9 mg/dL (0.2-1.0) 02/20/17 07:50 AST 64 U/L (15-37) H 02/20/17 07:50 ALT 57 U/L (12-78) 02/18/17 07:00 Alkaline Phosphatase 131 U/L (45-117) H 02/20/17 07:50 Ammonia 88.95 umol/L (11-32) H 02/20/17 08:00 Total Protein 7.4 g/dl (6.4-8.2) 02/18/17 07:00 Albumin 2.8 g/dl (3.4-5.0) L 02/18/17 07:00 Urine Color Yellow 03/02/17 07:00 Urine Appearance Clear 03/02/17 07:00 Urine pH 6.0 (5.0-8.0) 03/02/17 07:00 Ur Specific [place] 1.010 (1.005-1.025) 03/02/17 07:00 Urine Protein Negative (NEGATIVE) 03/02/17 07:00 Urine Glucose (UA) Negative (NEGATIVE) 03/02/17 07:00 Urine Ketones Negative (NEGATIVE) 03/02/17 07:00 Urine Blood 2+ (NEGATIVE) H 03/02/17 07:00 Urine Nitrite Negative (NEGATIVE) 03/02/17 07:00 Urine Bilirubin Negative (NEGATIVE) 03/02/17 07:00 Urine Urobilinogen 4.0 e.u/dl E.U./dl (0.2-1.0) 03/02/17 07:00 Ur Leukocyte Esterase Negative (NEGATIVE) 03/02/17 07:00 Urine RBC 46 /hpf (0-3) 03/02/17 07:00 Urine WBC 3 /hpf (3-5) 03/02/17 07:00 Ur Epithelial Cells Rare /hpf (FEW) 03/02/17 07:00 Urine Mucus Rare 03/02/17 07:00 microscopic hematuria rbc is 46,wbc is 3 encourageoral fluid repeat ua and urine for c/s today
--- NOTE | 2017-03-03 09:17 | PN ---
[facility] Progress Note Note: patient has chronic ulcer of left foot,dm,hypertension,microscopic hematuria, has been seeing and follow up with his own md patient is scheduled for discharge in am,repeat ua and urine for c/s ordered he will go to see his own md upon discharge and follow up evaluation of ulcer left foot,microscopic hematuria, possible evaluation and work up for microscopic hematuria upon discharge
[2017-03-03] MEDS ORDERED: METHADONE HCL 10 MG TABLET ONE (09:39)
[2017-03-03] MEDS ORDERED: METHADONE HCL 40 MG DISPERSABLE TABLET ONE (09:40)
[2017-03-03] MEDS: PRENATAL VITAMINS W/ FOLIC ACID TABLET (FP) PO SCH (10:55)
[2017-03-03] MEDS: SILVER SULFADIAZINE 1% TOP CREAM 50 GM JAR TP SCH ×2 (10:55→21:50)
[2017-03-03] MEDS: SULFAMETHOXAZOLE/TRIMETHOPRIM 800MG/160MG D.S. TABLET PO SCH ×2 (10:55→21:44)
[2017-03-03] MEDS ORDERED: PT OWN MED DRAWER 7, Y5N ONE ×2 (10:56→11:29)
[2017-03-03] MEDS: ENALAPRIL MALEATE 10 MG TABLET (FP) PO SCH (10:57)
[2017-03-03] MEDS: AMMONIUM LACTATE 12% LOTION 225 GM BOTTLE TP SCH ×2 (10:57→21:49)
[2017-03-03] MEDS: METHADONE 80 MG, METHADONE 30 MG PO SCH (10:59)
[2017-03-03] MEDS: METHYL SALICYLATE/MENTHOL OINT 30 GM TUBE TP SCH ×2 (11:00→21:59)
[2017-03-03 14:17] LABS: URINE APPEARANCE CLEAR; URINE BILIRUBIN NEGATIVE (NEGATIVE); URINE BLOOD NEGATIVE (NEGATIVE); URINE COLOR YELLOW; URINE GLUCOSE (UA) NEGATIVE (NEGATIVE); URINE KETONE NEGATIVE (NEGATIVE); URINE LEUK ESTERASE NEGATIVE (NEGATIVE); URINE NITRITE NEGATIVE (NEGATIVE); URINE PROTEIN NEGATIVE (NEGATIVE); URINE UROBILINOGEN 2.0 E.U/dl E.U./dl (0.2-1.0)
[2017-03-03] MEDS: hydrOXYzine PAMOATE 50 MG CAPSULE (FP) PO SCH (21:45)
[2017-03-03] MEDS: THIAMINE HCL 100 MG TABLET (FP) PO SCH (21:46)
[2017-03-03] MEDS: ATORVASTATIN CA 40 MG TABLET (FP) PO SCH (21:46)
[2017-03-03] MEDS: INSULIN DETEMIR 100 UNITS/ML MDV SQ SCH (21:48)
[2017-03-04] MEDS: sitaGLIPtin PHOSPHATE 50 MG TABLET PO SCH (06:08)
[2017-03-04] MEDS: metFORMIN HCL 500 MG TABLET (FP) PO SCH (06:08)
[2017-03-04 06:30] VITALS: TEMP 98.4
--- NOTE | 2017-03-04 07:56 | PN ---
[facility] Progress Note Note: Laboratory Results - last 24 hr 03/03/17 03/03/17 03/04/17 12:20 16:40 06:07 POC Glucometer 108 101 Urine Color Yellow Urine Appearance Clear Urine pH 6.0 Ur Specific [place] 1.020 Urine Protein Negative Urine Glucose (UA) Negative Urine Ketones Negative Urine Blood Negative Urine Nitrite Negative Urine Bilirubin Negative Urine Urobilinogen 2.0 e.u/dl Ur Leukocyte Esterase Negative PATIENT WILL BE DISCHARGE TODAY FOLLOW UP WITH OWN PMD FOR MEDICAL PROBLEM,ULCER OF LEFT FOOT,DIABETIC CONTROL, HYPER TENSION AND MICROSCOPIC HEMATURIA UPON DISCHARGE FROM REHAB
[2017-03-04] MEDS ORDERED: METHADONE HCL 10 MG TABLET ONE (09:16)
[2017-03-04] MEDS ORDERED: METHADONE HCL 40 MG DISPERSABLE TABLET ONE (09:17)
--- NOTE | 2017-03-04 09:32 | PN ---
Psychiatric Progress Note Vital Signs: Vital Signs Period Temp Pulse Resp BP Sys/Guevara Pulse Ox Last 24 Hr 98.4 F 85-86 18-18 128-133/83-90 Date of Session: 03/04/17 Chief Complaint:: discharge visit HPI: Patient has addressed alcohol, opioid dependence comorbid opioid induced sleep disorder. ROS: HTN, HEP C, and DM medically managed. Current Medications: Active Medications Generic Name Dose Route Start Last Admin Trade Name Freq PRN Reason Stop Dose Admin Al Hydroxide/Mg Hydroxide 30 ml 02/16/17 16:39 Mylanta Oral Suspension - PO Q6H PRN DYSPEPSIA Atorvastatin Calcium 40 mg 02/16/17 22:00 03/03/17 21:46 Lipitor - PO 40 mg HS SHIRA Administration Cyclobenzaprine HCl 10 mg 02/28/17 06:16 02/28/17 07:23 Flexeril - PO 10 mg Q8H PRN Administration MUSCLE SPASMS Enalapril Maleate 10 mg 02/17/17 10:00 03/03/17 10:57 Vasotec - PO 10 mg DAILY SHIRA Administration Eucalyptus/Menthol/Phenol/Sorbitol 1 each 02/16/17 16:39 Cepastat Lozenge - MM Q4H PRN SORE THROAT Guaifenesin 10 ml 02/16/17 16:39 Robitussin Dm - PO Q6H PRN COUGH Hydroxyzine Pamoate 100 mg 03/01/17 22:00 03/03/17 21:45 Vistaril - PO 100 mg HS SHIRA Administration Ibuprofen 400 mg 02/16/17 16:39 02/27/17 16:44 Motrin - PO 400 mg Q6H PRN Administration PAIN Insulin Detemir 20 units 02/18/17 22:00 03/03/17 21:48 Levemir Vial SQ 20 unit HS SHIRA Administration Lactic Acid 1 applic 02/17/17 13:30 03/03/17 21:49 Lac-Hydrin 12 TP Not Given BID SHIRA Loperamide HCl 4 mg 02/16/17 16:39 02/19/17 08:23 Imodium - PO 4 mg Q6H PRN Administration DIARRHEA Magnesium Hydroxide 30 ml 02/16/17 16:39 Milk Of Magnesia - PO DAILY PRN CONSTIPATION Metformin HCl 500 mg 03/01/17 17:45 03/04/17 06:08 Glucophage - PO 500 mg BID@0700,1630 SHIRA Administration Methadone HCl 80 mg/ Methadone 110 mg 03/03/17 10:00 03/03/17 10:59 HCl 30 mg PO 03/09/17 09:59 110 mg DAILY@1000 SHIRA Administration Methyl Salicylate 1 applic 02/22/17 22:00 03/03/17 21:59 Angelo-Caban - TP Not Given BID SHIRA Multivit/Folic Acid/Iron 1 tab 02/17/17 10:00 03/03/17 10:55 Vitamins (Sjr) - PO 1 tab DAILY SHIRA Administration Pseudoephedrine/Triprolidine 1 combo 02/16/17 16:39 Actifed - PO TID PRN NASAL CONGESTION Silver Sulfadiazine 1 applic 02/17/17 22:00 03/03/17 21:50 Silvadene - TP 1 applic BID SHIRA Administration Sitagliptin Phosphate 50 mg 02/17/17 07:00 03/04/17 06:08 Januvia - PO 50 mg DAILY@0700 SHIRA Administration Thiamine HCl 100 mg 02/16/17 22:00 03/03/17 21:46 Vitamin B1 - PO 100 mg HS SHIRA Administration Trimethoprim/Sulfamethoxazole 1 each 03/02/17 10:00 03/03/17 21:44 Bactrim Ds - PO 1 each BID SHIRA Administration Current Side Effect: No Lab tests ordered: No Lab tests reviewed: Yes Provider note:: PAtient has completed today his treatment and met hisidentified gaols, [facility] He verbalized his resolution to continue maintain sobriety and to be adherent to every aspects of his aftercare plans. He`was educated on his addiction, he understands the implications and consequences of his addiction on his physical health. Patient is stable for discharge today. Total face to face time:: 35 Mental Status Exam - Mental Status Exam Alert and Oriented to: Time, Place, Person Cognitive Function: Good Patient Appearance: Well Groomed Mood: Hopeful Affect: Appropriate, Mood Congruent Patient Behavior: Appropriate, Cooperative Speech Pattern: Clear, Appropriate Voice Loudness: Normal Thought Process: Goal Oriented Thought Disorder: Not Present Hallucinations: Denies Suicidal Ideation: Denies Homicidal Ideation: Denies Insight/Judgement: Fair Sleep: Fair Appetite: Good Muscle strength/Tone: Normal Gait/Station: Normal Psychiatric Treatment Plan - Problem List (3) Methadone maintenance therapy patient Comment: last dose with 110mg today; pending verification (4) BPH (benign prostatic hyperplasia) Qualifiers: Lower urinary tract symptom detail: unspecified (5) HTN (hypertension) Qualifiers: Hypertension type: essential hypertension Qualified Code(s): I10 - Essential (primary) hypertension
[2017-03-04 09:43] VITALS: BP 159/90; PULSE 97
[2017-03-04] MEDS: SILVER SULFADIAZINE 1% TOP CREAM 50 GM JAR TP SCH (09:51)
[2017-03-04] MEDS: SULFAMETHOXAZOLE/TRIMETHOPRIM 800MG/160MG D.S. TABLET PO SCH (09:51)
[2017-03-04] MEDS: METHADONE 80 MG, METHADONE 30 MG PO SCH (09:51)
[2017-03-04] MEDS: AMMONIUM LACTATE 12% LOTION 225 GM BOTTLE TP SCH (09:51)
[2017-03-04] MEDS: METHYL SALICYLATE/MENTHOL OINT 30 GM TUBE TP SCH (09:51)
[2017-03-04] MEDS: PRENATAL VITAMINS W/ FOLIC ACID TABLET (FP) PO SCH (09:51)
[2017-03-04] MEDS: ENALAPRIL MALEATE 10 MG TABLET (FP) PO SCH (09:51)
== END 2017-03-04 10:50 | disposition home or self-care (01) | DRG 772 ==
LOC: YASAS 14:45 → Y5N 15:47
PROVIDERS: ADMIT Psychiatry & Neurology Psychiatry; ATTEND Psychiatry & Neurology Psychiatry
PROC: HZ42ZZZ Group Counseling for Substance Abuse Treatment, Cognitive-Behavioral (ICD-10-PCS; principal; 2017-03-04)
DX: F11.20 Opioid dependence, uncomplicated (principal); F10.20 Alcohol dependence, uncomplicated; F19.282 Other psychoactive substance dependence with psychoactive substance-induced sleep disorder; E11.649 Type 2 diabetes mellitus with hypoglycemia without coma; Z79.84 Long term (current) use of oral hypoglycemic drugs; E72.20 Disorder of urea cycle metabolism, unspecified
CPT/HCPCS: 36415; 73630-TC-LT; 80053; 81003; 81015; 82140; 82247; 84075; 84450; 85027; 87070; 87086; 87186; 87205